=== PATIENT | male | born 1945 | race Caucasian/White ===

== ENCOUNTER 2016-11-04 15:58 | Emergency (ER) | payer MEDICARE, MEDICAID ==
--- NOTE | 2016-11-04 17:00 | EDM.PDOC ---
[id number]: [facility] Time Seen by Provider: 11/04/16 16:30 Source of Information: Reports: Patient, EMS, Family History Limitations: Reports: No Limitations - History of Present Illness INITIAL COMMENTS - FREE TEXT/NARRATIVE: 71-year-old male who had an unresponsive episode at the custodial. He was in his wheelchair, had used the bathroom so got up from his wheelchair to go into the bathroom and started feeling very lightheaded and unsteady. He feels no chest pain or palpitations. He called the nurse to help him into the bathroom, he did urinate but became so lightheaded he had to be helped back into bed and the end of his urination became incontinent. They laid him on the bed he went unresponsive, they could not get a pulse and he turned dusky but continued to have shallow breathing. EMS was called and by the time they arrived he was conscious and talking but became very nauseous. 3 serial EKGs were done by EMS and all show what appears to be sinus rhythm. He now still feels a little lightheaded but otherwise is back to baseline. He had no significant diaphoresis. Onset: Sudden Duration: Hour(s): (Within the last 2 hours) Associated Symptoms: Reports: Nausea/Vomiting, Syncope, Weakness Chest Pain Score (Numeric/FACES): 2 - Related Data Allergies Allergy/AdvReac Type Severity Reaction Status Date / Time albuterol Allergy Cannot Verified 11/04/16 16:13 Remember digoxin AdvReac Confusion Verified 11/04/16 16:13 Home Meds: Home Meds Gabapentin [Neurontin] 400 mg PO TID 03/12/15 [History] Pantoprazole [ProTONIX] 40 mg PO BIDAC #60 tab.cr 03/15/15 [Rx] Hydrocodone/Acetaminophen [[place] 5-325] 1 tab PO Q4H PRN 05/07/15 [History] Melatonin 5 mg PO BEDTIME 05/07/15 [History] Sennosides/Docusate Sodium [Senna-Docusate Sodium] 2 tab PO BID 07/14/15 [ History] ClonazePAM [KlonoPIN] 1 mg PO BEDTIME PRN 08/10/15 [History] Levalbuterol HCl 1 ampule IH BID PRN 08/10/15 [History] Sertraline [Zoloft] 125 mg PO QAM 08/10/15 [History] Simvastatin [Zocor] 10 mg PO QPM 08/10/15 [History] Morphine Sulfate 7.5 mg PO Q6H PRN #30 tablet 08/17/15 [Rx] Lactulose [Cephulac] 30 ml PO DAILY PRN 08/31/15 [History] Metoprolol Tartrate [Lopressor] 50 mg PO BID 03/11/16 [History] Polyethylene Glycol 3350 [MiraLAX] 17 gm PO DAILY 03/11/16 [History] Torsemide 10 mg PO DAILY 03/11/16 [History] Warfarin [Coumadin] 2 mg PO DAILY 03/11/16 [History] Albuterol [Proair HFA] 2 puff INH Q4HR PRN 11/04/16 [History] Amino Ac/Protein Hydr/Whey Pro [Liquacel Liquid Protein] 1 oz PO BID 11/04/16 [ History] Flecainide Acetate [Flecainide Acetate] 150 mg PO BID 11/04/16 [History] Magnesium Oxide [Magnesium] 420 mg PO BID 11/04/16 [History] Mometasone/Formoterol [[place]era 200-5 MCG] 2 puff INH BIDRT 11/04/16 [History] Potassium Chloride 40 meq PO BIDAC 11/04/16 [History] Warfarin [Coumadin] 1.5 mg PO ASDIRECTED 11/04/16 [History] Past Medical History HEENT History: Reports: Cataract, Impaired Vision, Other (See Below) Other HEENT History: dry eye Cardiovascular History: Reports: Afib, CAD, Heart Failure, Hypertension Respiratory History: Reports: Asthma, COPD, Pneumonia, Recurrent, Other (See Below) Other Respiratory History: chronic pulmonary edema Gastrointestinal History: Reports: Chronic Constipation, Diverticulosis, GERD, Other (See Below) Other Gastrointestinal History: Intestinal rupture. warren's esophagus Genitourinary History: Reports: Renal Disease, Other (See Below) Other Genitourinary History: malignant neoplasm of of the kidney Musculoskeletal History: Reports: Fracture Other Musculoskeletal History: right rib fractures Neurological History: Reports: Concussion, Head Trauma Psychiatric History: Reports: Anxiety, Depression, Psych Hospitalization(s), PTSD, Other (See Below) Other Psychiatric History: sleep disorder Endocrine/Metabolic History: Reports: Obesity/BMI 30+ Oncologic (Cancer) History: Reports: Renal Dermatologic History: Reports: Other (See Below) Other Dermatologic History: dermatitis - Infectious Disease History Infectious Disease History: Reports: C-Difficile, Diphtheria, Mumps, Rheumatic Fever - Past Surgical History HEENT Surgical History: Reports: Cataract Surgery Other Cardiovascular Surgeries/Procedures: angiogram. ablasion GI Surgical History: Reports: Colon, Colostomy, EGD, Hernia Repair/Other, Other (See Below) Male Surgical History: Reports: Other (See Below) Other Male Surgeries/Procedures: "frozen" a spot on his kidney Social & Family History - Family History Family Medical History: Unobtainable HEENT: Reports: None Cardiac: Reports: Heart Failure, [place] Respiratory: Reports: COPD Psychiatric: Reports: Anxiety, Psych Hospitalization(s) Endocrine/Metabolic: Reports: Diabetes, type II - Tobacco Use Smoking Status *Q: Former Smoker Years of Tobacco use: 42 Used Tobacco, but Quit: Yes Month Tobacco Last Used: 10 years ago Second Hand Smoke Exposure: No - Caffeine Use Caffeine Use: Reports: Coffee, Soda - Alcohol Use Days Per Week of Alcohol Use: 1 Number of Drinks Per Day: 3 Total Drinks Per Week: 3 - Recreational Drug Use Recreational Drug Use: No - Living Situation & Occupation Living situation: Reports: Single Occupation: Disabled ED ROS GENERAL - Review of Systems Review Of Systems: See Below Constitutional: Denies: Fever, Chills, Malaise HEENT: Reports: No Symptoms Respiratory: Reports: Shortness of Breath (Chronic and stable, patient is O2 dependent) Cardiovascular: Denies: Chest Pain GI/Abdominal: Reports: Nausea, Other (Patient has a colostomy from surgery after diverticulitis with rupture). Denies: Abdominal Pain Musculoskeletal: Reports: Other (Chronic back pain) Skin: Reports: Bruising, Other (Was protective sleeves on his arms because of frequent skin tears) Neurological: Reports: Difficulty Walking Psychiatric: Reports: No Symptoms ED EXAM, GENERAL - Physical Exam Exam: See Below Exam Limited By: No Limitations General Appearance: Alert, No Apparent Distress Eye Exam: Bilateral Eye: Normal Inspection Respiratory/Chest: No Respiratory Distress, Decreased Breath Sounds (Diffuse decreased breath sounds bilaterally) Cardiovascular: Regular Rate, Rhythm. No: Extra Beats GI/Abdominal: Non-Tender, Other (Colostomy is in place, appears to be functioning) Extremities: No: Pedal Edema Neurological: Alert, Oriented Psychiatric: Normal Affect, Normal Mood Skin Exam: Warm, Dry Course - Vital Signs Last Recorded V/S: Last Vital Signs Temp 98.4 F 11/04/16 17:32 Pulse 101 H 11/04/16 17:32 Resp 12 11/04/16 17:32 BP 123/86 11/04/16 17:32 Pulse Ox 96 11/04/16 17:32 - Orders/Labs/Meds Labs: Laboratory Tests 11/04/16 11/04/16 Range/Units 16:58 16:58 WBC 11.1 H (4.5-11.0) K/uL RBC 4.37 (4.30-5.90) M/uL Hgb 13.0 (12.0-15.0) g/dL Hct 40.5 (40.0-54.0) % MCV 93 (80-98) fL MCH 30 (27-31) pg MCHC 32 (32-36) % Plt Count 291 (150-400) K/uL Neut % (Auto) 80 H (36-66) % Lymph % (Auto) 10 L (24-44) % [place] % (Auto) 8 H (2-6) % Eos % (Auto) 2 (2-4) % Baso % (Auto) 1 (0-1) % Sodium 137 L (140-148) mmol/L Potassium 4.6 (3.6-5.2) mmol/L Chloride 102 (100-108) mmol/L Carbon Dioxide 29 (21-32) mmol/L Anion Gap 10.6 (5.0-14.0) mmol/L BUN 33 H (7-18) mg/dL Creatinine 1.7 H (0.8-1.3) mg/dL Est Cr Clr Drug Dosing 39.12 mL/min Estimated GFR (MDRD) 40 L (>60) Glucose 103 (74-106) mg/dL Calcium 8.1 L (8.5-10.1) mg/dL Total Bilirubin 0.2 (0.2-1.0) mg/dL AST 49 H D (15-37) U/L ALT 53 D (12-78) U/L Alkaline Phosphatase 121 H (46-116) U/L Troponin I < 0.017 (0.000-0.056) ng/mL Total Protein 7.5 (6.4-8.2) g/dL Albumin 3.1 L (3.4-5.0) g/dL Globulin 4.4 H (2.3-3.5) g/dL Albumin/Globulin Ratio 0.7 L (1.2-2.2) - Re-Assessments/Exams Free Text/Narrative Re-Assessment/Exam: 11/04/16 17:00 Patient was monitored for an additional 45 minutes and maintained a sinus rhythm. CBC, CMP and troponin were obtained. 11/04/16 17:38 Patient remained asymptomatic over a course of an hour, labs were reassuring. His renal insufficiency is stable. He is not anemic. Departure - Departure Time of Disposition: 18:43 Disposition: DC/Tfer to [facility] Condition: good Clinical Impression: Vasovagal syncope - Discharge Information Instructions: Syncope, [id number] Referrals: Yg Walker MD [Primary Care Provider] - Forms: ED Department Discharge Care Plan Goals: Increase activity as tolerated, and diet as usual and no medication changes at this time. Return or call any time if you feel you are worsening or have other concerns.
[2016-11-04 17:34] VITALS: BP 123/86
== END 2016-11-04 18:20 ==
LOC: JP.ED 15:58
DX: R55 Syncope and collapse (principal); I25.10 Atherosclerotic heart disease of native coronary artery without angina pectoris; I11.0 Hypertensive heart disease with heart failure; I50.9 Heart failure, unspecified; J44.9 Chronic obstructive pulmonary disease, unspecified; K21.9 Gastro-esophageal reflux disease without esophagitis; F41.9 Anxiety disorder, unspecified; E66.9 Obesity, unspecified; Z98.49 Cataract extraction status, unspecified eye; Z87.891 Personal history of nicotine dependence; Z88.8 Allergy status to other drugs, medicaments and biological substances; Z88.1 Allergy status to other antibiotic agents; Z79.899 Other long term (current) drug therapy; Z79.01 Long term (current) use of anticoagulants
CPT/HCPCS: 36415; 80053; 84484; 85025; 99284; 99285

== ENCOUNTER 2016-12-07 04:16 | Emergency (ER) | payer MEDICARE, MEDICAID ==
--- NOTE | 2016-12-07 04:55 | EDM.PDOC ---
[id number]: [facility] [place] Time Seen by Provider: 12/07/16 04:35 Source of Information: Reports: Patient, EMS, [facility] Records History Limitations: Reports: No Limitations - History of Present Illness INITIAL COMMENTS - FREE TEXT/NARRATIVE: 71-year-old male was felt to be unresponsive and not breathing at the longterm this evening so the staff started doing chest compressions. Apparently he received about 6 compressions and he woke up, EMS was called. When EMS arrived he was up and talking and visiting and complaining of some chest discomfort from the compressions. I saw him one month ago with a vasovagal unresponsive episode but apparently he's done well since then. He is on chronic O2. No fevers or chills. No nausea or vomiting. His vitals are stable at this time. He is in a normal sinus rhythm. Onset: Unknown/Unsure Severity: Moderate Associated Symptoms: Reports: Other (Currently being treated for "pneumonia"). Denies: Fever/Chills Anterior Chest Pain Score (Numeric/FACES): 6 - Related Data Allergies Allergy/AdvReac Type Severity Reaction Status Date / Time albuterol Allergy Cannot Verified 11/04/16 16:13 Remember digoxin AdvReac Confusion Verified 11/04/16 16:13 Home Meds: Home Meds Gabapentin [Neurontin] 400 mg PO TID 03/12/15 [History] Pantoprazole [ProTONIX] 40 mg PO BIDAC #60 tab.cr 03/15/15 [Rx] Hydrocodone/Acetaminophen [[place] 5-325] 1 tab PO Q4H PRN 05/07/15 [History] Melatonin 3 mg PO BEDTIME 05/07/15 [History] Sennosides/Docusate Sodium [Senna-Docusate Sodium] 2 tab PO BID 07/14/15 [ History] ClonazePAM [KlonoPIN] 1 mg PO BEDTIME PRN 08/10/15 [History] Levalbuterol HCl 1 ampule IH BID 08/10/15 [History] Sertraline [Zoloft] 125 mg PO QAM 08/10/15 [History] Simvastatin [Zocor] 10 mg PO QPM 08/10/15 [History] Lactulose [Cephulac] 30 ml PO DAILY PRN 08/31/15 [History] Metoprolol Tartrate [Lopressor] 50 mg PO BID 03/11/16 [History] Polyethylene Glycol 3350 [MiraLAX] 17 gm PO DAILY 03/11/16 [History] Torsemide 10 mg PO DAILY 03/11/16 [History] Warfarin [Coumadin] 2 mg PO ASDIRECTED 03/11/16 [History] Albuterol [Proair HFA] 2 puff INH Q4HR PRN 11/04/16 [History] Flecainide Acetate [Flecainide Acetate] 150 mg PO BID 11/04/16 [History] Magnesium Oxide [Magnesium] 420 mg PO BID 11/04/16 [History] Mometasone/Formoterol [[place]era 200-5 MCG] 2 puff INH BIDRT 11/04/16 [History] Potassium Chloride 40 meq PO BIDAC 11/04/16 [History] Warfarin [Coumadin] 1 mg PO ASDIRECTED 11/04/16 [History] Acetaminophen [Tylenol] 650 mg PO TID 12/07/16 [History] Qnusf-[id number]-Aqvqearcwaxbs [Beano] 1 each PO TIDAC 12/07/16 [History] Dextran 70/Hypromellose [Artificial Tears Eye Drops] 2 drop OP BID 12/07/16 [ History] Levofloxacin [Levaquin] 250 mg PO DAILY 12/07/16 [History] Morphine Sulfate 7.5 mg PO Q3H PRN 12/07/16 [History] Vit E Acetate/Gly/Dimeth/Water [Cetaphil Moisturizing Lotion] 1 applic TOP DAILY 12/07/16 [History] Past Medical History HEENT History: Reports: Cataract, Impaired Vision, Other (See Below) Other HEENT History: dry eye Cardiovascular History: Reports: Afib, CAD, Heart Failure, Hypertension Respiratory History: Reports: Asthma, COPD, Pneumonia, Recurrent, Other (See Below) Other Respiratory History: chronic pulmonary edema Gastrointestinal History: Reports: Chronic Constipation, Diverticulosis, GERD, Other (See Below) Other Gastrointestinal History: Intestinal rupture. warren's esophagus Genitourinary History: Reports: Renal Disease, Other (See Below) Other Genitourinary History: malignant neoplasm of of the kidney Musculoskeletal History: Reports: Fracture Other Musculoskeletal History: right rib fractures Neurological History: Reports: Concussion, Head Trauma Psychiatric History: Reports: Anxiety, Depression, Psych Hospitalization(s), PTSD, Other (See Below) Other Psychiatric History: sleep disorder Endocrine/Metabolic History: Reports: Obesity/BMI 30+ Oncologic (Cancer) History: Reports: Renal Dermatologic History: Reports: Other (See Below) Other Dermatologic History: dermatitis - Infectious Disease History Infectious Disease History: Reports: C-Difficile, Diphtheria, Mumps, Rheumatic Fever - Past Surgical History HEENT Surgical History: Reports: Cataract Surgery Other Cardiovascular Surgeries/Procedures: angiogram. ablasion GI Surgical History: Reports: Colon, Colostomy, EGD, Hernia Repair/Other, Other (See Below) Male Surgical History: Reports: Other (See Below) Other Male Surgeries/Procedures: "frozen" a spot on his kidney Social & Family History - Family History Family Medical History: Unobtainable HEENT: Reports: None Cardiac: Reports: Heart Failure, [place] Respiratory: Reports: COPD Psychiatric: Reports: Anxiety, Psych Hospitalization(s) Endocrine/Metabolic: Reports: Diabetes, type II - Tobacco Use Smoking Status *Q: Never Smoker Years of Tobacco use: 42 Used Tobacco, but Quit: Yes Month Tobacco Last Used: 10 years ago Second Hand Smoke Exposure: No - Caffeine Use Caffeine Use: Reports: Coffee - Alcohol Use Days Per Week of Alcohol Use: 0 Number of Drinks Per Day: 3 Total Drinks Per Week: 0 - Recreational Drug Use Recreational Drug Use: No - Living Situation & Occupation Living situation: Reports: Single Occupation: Disabled ED ROS GENERAL - Review of Systems Review Of Systems: See Below Constitutional: Denies: Fever, Chills Respiratory: Reports: Shortness of Breath (Chronic and stable), Cough ( Intermittent) Cardiovascular: Reports: Chest Pain (Hurts to breathe) GI/Abdominal: Denies: Nausea, Vomiting Skin: Reports: No Symptoms Neurological: Denies: Headache Psychiatric: Reports: No Symptoms ED EXAM, GENERAL - Physical Exam Exam: See Below Exam Limited By: No Limitations General Appearance: Alert, No Apparent Distress Eye Exam: Bilateral Eye: EOMI Respiratory/Chest: No Respiratory Distress, Decreased Breath Sounds (Diffuse decreased breath sounds but no wheezing or rales) Cardiovascular: Regular Rate, Rhythm GI/Abdominal: Non-Tender Extremities: No: Pedal Edema Neurological: Alert, Oriented Psychiatric: Normal Affect, Normal Mood Skin Exam: Warm, Dry Course - Vital Signs Last Recorded V/S: Last Vital Signs Temp 98.4 F 12/07/16 04:29 Pulse 50 L 12/07/16 07:42 Resp 16 12/07/16 07:42 BP 98/56 L 12/07/16 07:42 Pulse Ox 92 L 12/07/16 07:42 - Orders/Labs/Meds Labs: Laboratory Tests 12/07/16 12/07/16 Range/Units 04:37 04:37 WBC 9.2 (4.5-11.0) K/uL RBC 3.77 L (4.30-5.90) M/uL Hgb 11.2 L (12.0-15.0) g/dL Hct 35.4 L (40.0-54.0) % MCV 94 (80-98) fL MCH 30 (27-31) pg MCHC 32 (32-36) % Plt Count 249 (150-400) K/uL Neut % (Auto) 75 H (36-66) % Lymph % (Auto) 14 L (24-44) % [place] % (Auto) 8 H (2-6) % Eos % (Auto) 2 (2-4) % Baso % (Auto) 0 (0-1) % Sodium 141 (140-148) mmol/L Potassium 4.4 (3.6-5.2) mmol/L Chloride 106 (100-108) mmol/L Carbon Dioxide 30 (21-32) mmol/L Anion Gap 5.5 (5.0-14.0) mmol/L BUN 28 H (7-18) mg/dL Creatinine 2.3 H (0.8-1.3) mg/dL Est Cr Clr Drug Dosing 29.89 mL/min Estimated GFR (MDRD) 28 L (>60) Glucose 107 H (74-106) mg/dL Calcium 8.2 L (8.5-10.1) mg/dL Troponin I < 0.017 (0.000-0.056) ng/mL - Re-Assessments/Exams Free Text/Narrative Re-Assessment/Exam: 12/07/16 04:43 manager monitoring continued to show normal sinus rhythm. Other than the chest discomfort the patient complained of no symptoms. CBC BMP and troponin were obtained, and compared to the labs drawn 2 days ago by his primary provider and by myself one month ago. 12/07/16 07:00 Creatinine was slightly elevated compared to baseline but GFR was stable. Troponin was 0 and CBC was stable. Patient rested quietly for 3 hours while in the emergency room, no additional symptoms. He was discharged back to the longterm. Departure - Departure Time of Disposition: 08:00 Disposition: DC/Tfer to [facility] 63 Condition: Fair Clinical Impression: Episode of unresponsiveness COPD (chronic obstructive pulmonary disease) Qualifiers: COPD type: unspecified COPD Qualified Code(s): J44.9 - Chronic obstructive pulmonary disease, unspecified - Discharge Information Instructions: Chronic Obstructive Pulmonary Disease, [id number] Referrals: PCP,None [Primary Care Provider] - Forms: ED Department Discharge Care Plan Goals: Continue current medications without changes. Call primary provider for any changes or concerns, or return to ER if worsening.
[2016-12-07 07:43] VITALS: BP 98/56
== END 2016-12-07 08:02 ==
LOC: JP.ED 04:16
DX: J44.9 Chronic obstructive pulmonary disease, unspecified (principal); R41.82 Altered mental status, unspecified; I11.0 Hypertensive heart disease with heart failure; I50.9 Heart failure, unspecified; J45.909 Unspecified asthma, uncomplicated; K21.9 Gastro-esophageal reflux disease without esophagitis; F41.9 Anxiety disorder, unspecified; F32.9 Major depressive disorder, single episode, unspecified; E66.9 Obesity, unspecified; Z85.528 Personal history of other malignant neoplasm of kidney; Z98.49 Cataract extraction status, unspecified eye; Z79.899 Other long term (current) drug therapy; Z79.01 Long term (current) use of anticoagulants; Z88.8 Allergy status to other drugs, medicaments and biological substances
CPT/HCPCS: 36415; 80048; 84484; 85025; 99282; 99285

== ENCOUNTER 2016-12-12 11:40 | Inpatient (IN) | payer MEDICARE, MEDICAID ==
[2016-12-12] MEDS ORDERED: Sodium Chloride 0.9% 10 ML Syringe FLUSH PRN ×2 (11:54→14:39)
[2016-12-12] MEDS ORDERED: Albuterol/Ipratropium 3.0-0.5 MG/3 ML Neb Soln NEB ONE (11:56)
--- NOTE | 2016-12-12 12:08 | EDM.PDOC ---
ED HPI GENERAL MEDICAL PROBLEM - General Chief Complaint: Respiratory Problem Stated Complaint: [facility] Time Seen by Provider: 12/12/16 11:50 Source of Information: Reports: EMS History Limitations: Reports: Respiratory Distress - History of Present Illness INITIAL COMMENTS - FREE TEXT/NARRATIVE: Neo is a 71 year old male who presents to the ED today from [facility] with increasing sob over the last 2 days. Patient has extensive medial hx. Daughter reports that she tried to bring patient here herself and became "unresponsive" in the car so she called 911. EMS arrived, patient was awake but found to be significantly hypoxic at 76% on 2 liters. Patient did have an episode of unresponsiveness on 12/07 at the [facility], there was reported 6 chest compressions done at that time after which patient woke up. Patient denies any chest pain other than soreness related to the chest compressions. He denies any fever, nausea, vomiting, abdominal pain. Patient reports he has been eating and drinking "okay". Patient has had increasing productive cough for the last 3 days as well. Onset: Gradual Duration: Day(s): (3) Severity: Severe - Related Data Allergies Allergy/AdvReac Type Severity Reaction Status Date / Time albuterol Allergy Cannot Verified 11/04/16 16:13 Remember digoxin AdvReac Confusion Verified 11/04/16 16:13 Home Meds: Home Meds Gabapentin [Neurontin] 400 mg PO TID 03/12/15 [History] Pantoprazole [ProTONIX] 40 mg PO BIDAC #60 tab.cr 03/15/15 [Rx] Hydrocodone/Acetaminophen [Butler 5-325] 1 tab PO Q4H PRN 05/07/15 [History] Melatonin 3 mg PO BEDTIME 05/07/15 [History] Sennosides/Docusate Sodium [Senna-Docusate Sodium] 2 tab PO BID 07/14/15 [ History] ClonazePAM [KlonoPIN] 1 mg PO BEDTIME PRN 08/10/15 [History] Levalbuterol HCl 1 ampule IH BID 08/10/15 [History] Sertraline [Zoloft] 125 mg PO QAM 08/10/15 [History] Simvastatin [Zocor] 10 mg PO QPM 08/10/15 [History] Lactulose [Cephulac] 30 ml PO DAILY PRN 08/31/15 [History] Metoprolol Tartrate [Lopressor] 50 mg PO BID 03/11/16 [History] Polyethylene Glycol 3350 [MiraLAX] 17 gm PO DAILY 03/11/16 [History] Torsemide 10 mg PO DAILY 03/11/16 [History] Warfarin [Coumadin] 2 mg PO ASDIRECTED 03/11/16 [History] Albuterol [Proair HFA] 2 puff INH Q4HR PRN 11/04/16 [History] Flecainide Acetate [Flecainide Acetate] 150 mg PO BID 11/04/16 [History] Magnesium Oxide [Magnesium] 420 mg PO BID 11/04/16 [History] Mometasone/Formoterol [Dulera 200-5 MCG] 2 puff INH BIDRT 11/04/16 [History] Potassium Chloride 40 meq PO BIDAC 11/04/16 [History] Warfarin [Coumadin] 1 mg PO ASDIRECTED 11/04/16 [History] Acetaminophen [Tylenol] 650 mg PO TID 12/07/16 [History] Kwzny-W-Vhxioorxjlxzm [Beano] 1 each PO TIDAC 12/07/16 [History] Dextran 70/Hypromellose [Artificial Tears Eye Drops] 2 drop OP BID 12/07/16 [ History] Levofloxacin [Levaquin] 250 mg PO DAILY 12/07/16 [History] Morphine Sulfate 7.5 mg PO Q3H PRN 12/07/16 [History] Vit E Acetate/Gly/Dimeth/Water [Cetaphil Moisturizing Lotion] 1 applic TOP DAILY 12/07/16 [History] Past Medical History HEENT History: Reports: Cataract, Impaired Vision, Other (See Below) Other HEENT History: dry eye Cardiovascular History: Reports: Afib, CAD, Heart Failure, Hypertension Respiratory History: Reports: Asthma, COPD, Pneumonia, Recurrent, Other (See Below) Other Respiratory History: chronic pulmonary edema Gastrointestinal History: Reports: Chronic Constipation, Diverticulosis, GERD, Other (See Below) Other Gastrointestinal History: Intestinal rupture. warren's esophagus Genitourinary History: Reports: Renal Disease, Other (See Below) Other Genitourinary History: malignant neoplasm of of the kidney Musculoskeletal History: Reports: Fracture Other Musculoskeletal History: right rib fractures Neurological History: Reports: Concussion, Head Trauma Psychiatric History: Reports: Anxiety, Depression, Psych Hospitalization(s), PTSD, Other (See Below) Other Psychiatric History: sleep disorder Endocrine/Metabolic History: Reports: Obesity/BMI 30+ Hematologic History: Reports: Anemia, Anticoagulation Therapy Immunologic History: Reports: None Oncologic (Cancer) History: Reports: Renal Dermatologic History: Reports: Other (See Below) Other Dermatologic History: dermatitis - Infectious Disease History Infectious Disease History: Reports: C-Difficile, Diphtheria, Mumps, Rheumatic Fever - Past Surgical History HEENT Surgical History: Reports: Cataract Surgery Other Cardiovascular Surgeries/Procedures: angiogram. ablasion GI Surgical History: Reports: Colon, Colostomy, EGD, Hernia Repair/Other, Other (See Below) Male Surgical History: Reports: Other (See Below) Other Male Surgeries/Procedures: "frozen" a spot on his kidney Social & Family History - Family History Family Medical History: Unobtainable HEENT: Reports: None Cardiac: Reports: Heart Failure, NE Respiratory: Reports: COPD Psychiatric: Reports: Anxiety, Psych Hospitalization(s) Endocrine/Metabolic: Reports: Diabetes, type II - Tobacco Use Smoking Status *Q: Never Smoker Years of Tobacco use: 42 Used Tobacco, but Quit: Yes Month Tobacco Last Used: 10 years ago Second Hand Smoke Exposure: No - Caffeine Use Caffeine Use: Reports: Coffee - Alcohol Use Days Per Week of Alcohol Use: 0 Number of Drinks Per Day: 3 Total Drinks Per Week: 0 - Recreational Drug Use Recreational Drug Use: No - Living Situation & Occupation Living situation: Reports: Single Occupation: Disabled ED ROS GENERAL - Review of Systems Review Of Systems: See Below Constitutional: Reports: Fatigue Respiratory: Reports: Shortness of Breath, Wheezing, Cough, Sputum Cardiovascular: Reports: Chest Pain, Dyspnea on Exertion, Edema Endocrine: Reports: Fatigue GI/Abdominal: Reports: No Symptoms : Reports: No Symptoms Musculoskeletal: Reports: No Symptoms Skin: Reports: Bruising Neurological: Reports: Syncope Psychiatric: Reports: No Symptoms Immunologic: Reports: No Symptoms ED EXAM, GENERAL - Physical Exam Exam: See Below Exam Limited By: Respiratory Distress General Appearance: Alert, Moderate Distress Neck: Normal Inspection Respiratory/Chest: Crackles, Wheezing, Other (mid sternal chest tenderness, no crepitus) Cardiovascular: No JVD, Bradycardia, Other (regular rhythm) GI/Abdominal: Non-Tender, Distended, Other (colostomy present) (Male) Exam: Deferred Rectal (Males) Exam: Deferred Extremities: Slow Capillary Refill, Pallor, Other Neurological: Alert, Oriented, Normal Cognition Psychiatric: Normal Affect Skin Exam: Warm, Dry EKG INTERPRETATION EKG Date: 12/12/16 Rhythm: NSR [place]: Normal P-Wave: Present QRS: Normal ST-T: Normal QT: Normal Course - Vital Signs Last Recorded V/S: Last Vital Signs Temp 37.1 C 12/12/16 12:08 Pulse 57 L 12/12/16 12:08 Resp 19 12/12/16 12:08 BP 136/67 12/12/16 12:08 Pulse Ox 92 L 12/12/16 12:08 Neo is a 71 year old male with multiple medical problems including CHF, COPD , CKD, atrial fibrillation, anti-coagulated currently being treated for pneumonia, on Levaquin who presents to the ED today via EMS with worsening increasing SOB for the last 2-3 days. Please refer to HPI and focused exam. On arrival, patient is in acute respiratory distress, patient is quite tachypneic, he is hypoxic at 74% on 2 liters per cannula. Patient has tenderness to medial chest from compressions last week. Patient exhibits crackles and wheezing on lung exam, likely combination of CHF and COPD exacerbation, possible worsening pneumonia and concerns for sepsis as well given recent hx. Patient is actually bradycardic and normotensive, he is not febrile. PIV established, RT called, patient placed on bipap with immediate improvement in respiratory distress and hypoxia. EKG obtained, reads junctional rhythm, however, P waves noted, patient in kartik sinus with no ectopy or ischemic findings. Blood work obtained, Troponin is undetectable, BNP elevated at 3588, no recent comparison, CBC returns with normal WBC, HGB stable at 11. ABG returns with normal PH. Mildly elevated PCO2 and Bicarb. Lactic Acid normal at 1.6. CMP returns with elevated creatinine of 2.0 consistent with patient's CKD, BUN elevated at 36. Potassium is elevated at 5.3. Sodium returns at 138. Alkaline phos is elevated as well at 132. Milldly low albumin of 2.8. Remaining CMP within normal limits. CXR obtained and has hazy borders and congestion consistent with CHF, worse than prior film. 1315-Patient feeling much better on Bipap. I did give him 40 mg lasix for diuresis and 125 mg of Solumedrol for COPD exacerbation. Patient is not currently on steroids that I can find. I discussed patient with hospitalist, Dr. Staples who has accepted patient for admission. Family and patient updated on plan of care and are agreeable. - Orders/Labs/Meds Orders: Active Orders 24 hr Category Date Time Status BIPAP Adult [RT BiPAP/CPAP] [RC] ASDIRECTED Care 12/12/16 11:54 Active Cardiac Monitoring [RC] .As Directed Care 12/12/16 11:54 Active EKG Documentation Completion [RC] ASDIRECTED Care 12/12/16 11:53 Active Peripheral IV Care [RC] . DIRECTED Care 12/12/16 11:54 Active RT Aerosol Therapy [RC] ASDIRECTED Care 12/12/16 11:58 Active Chest 1V Frontal [CR] Stat Exams 12/12/16 11:56 Taken URINALYSIS W/MICROSCOPIC [UA W/MICROSCOPIC] [URIN] Stat Lab 12/12/16 13:05 Ordered Sodium Chloride 0.9% [Saline Flush] Med 12/12/16 11:54 Active 10 ml FLUSH ASDIRECTED PRN Peripheral IV Insertion Adult [OM.PC] Routine Oth 12/12/16 11:54 Ordered EKG 12 Lead [EK] Stat Ther 12/12/16 11:53 Ordered Medication Orders Sodium Chloride (Saline Flush) 10 ml FLUSH ASDIRECTED PRN PRN Reason: Keep Vein Open Labs: Laboratory Tests 12/12/16 12/12/16 12/12/16 Range/Units 12:15 12:15 12:15 WBC 9.0 (4.5-11.0) K/uL RBC 3.70 L (4.30-5.90) M/uL Hgb 11.0 L (12.0-15.0) g/dL Hct 34.7 L (40.0-54.0) % MCV 94 (80-98) fL MCH 30 (27-31) pg MCHC 32 (32-36) % Plt Count 267 (150-400) K/uL Neut % (Auto) 76 H (36-66) % Lymph % (Auto) 11 L (24-44) % Dawson % (Auto) 11 H (2-6) % Eos % (Auto) 3 (2-4) % Baso % (Auto) 1 (0-1) % Puncture Site ABG pH (7.350-7.450) ABG pCO2 (35.0-42.0) mmHg ABG pO2 (75.0-100.0) mmHg ABG HCO3 (22.0-26.0) mmol/L ABG Total CO2 (23.0-27.0) mmol/L ABG O2 Saturation (95.0-98.0) % ABG O2 Content (15.0-23.0) %vol ABG Base Excess mm/L ABG Hemoglobin (13.5-18.0) g/dL ABG Oxyhemoglobin % ABG Carboxyhemoglobin (0.0-1.6) % ABG Methemoglobin % Abdulaziz Test O2 Delivery Device Oxygen Flow Rate L Sodium 138 L (140-148) mmol/L Potassium 5.3 H (3.6-5.2) mmol/L Chloride 102 (100-108) mmol/L Carbon Dioxide 28 (21-32) mmol/L Anion Gap 13.3 (5.0-14.0) mmol/L BUN 36 H (7-18) mg/dL Creatinine 2.0 H (0.8-1.3) mg/dL Est Cr Clr Drug Dosing 34.37 mL/min Estimated GFR (MDRD) 33 L (>60) Glucose 125 H (74-106) mg/dL Lactic Acid 1.6 (0.4-2.0) mmol/L Calcium 8.6 (8.5-10.1) mg/dL Total Bilirubin 0.5 D (0.2-1.0) mg/dL AST 19 (15-37) U/L ALT 29 (12-78) U/L Alkaline Phosphatase 132 H (46-116) U/L Troponin I (0.000-0.056) ng/mL Xxy-V-Vrcwvjzzxlr Pept (5-125) pg/mL Total Protein 7.5 (6.4-8.2) g/dL Albumin 2.8 L (3.4-5.0) g/dL Globulin 4.7 H (2.3-3.5) g/dL Albumin/Globulin Ratio 0.6 L (1.2-2.2) 12/12/16 12/12/16 Range/Units 12:15 12:28 WBC (4.5-11.0) K/uL RBC (4.30-5.90) M/uL Hgb (12.0-15.0) g/dL Hct (40.0-54.0) % MCV (80-98) fL MCH (27-31) pg MCHC (32-36) % Plt Count (150-400) K/uL Neut % (Auto) (36-66) % Lymph % (Auto) (24-44) % Dawson % (Auto) (2-6) % Eos % (Auto) (2-4) % Baso % (Auto) (0-1) % Puncture Site Lt radial ABG pH 7.380 (7.350-7.450) ABG pCO2 46.0 H (35.0-42.0) mmHg ABG pO2 79.4 (75.0-100.0) mmHg ABG HCO3 26.6 H (22.0-26.0) mmol/L ABG Total CO2 24.6 (23.0-27.0) mmol/L ABG O2 Saturation 95.1 (95.0-98.0) % ABG O2 Content 14.1 L (15.0-23.0) %vol ABG Base Excess 1.7 mm/L ABG Hemoglobin 10.7 L (13.5-18.0) g/dL ABG Oxyhemoglobin 93.1 % ABG Carboxyhemoglobin 1.3 (0.0-1.6) % ABG Methemoglobin 0.8 % Abdulaziz Test Pass O2 Delivery Device Bipap Oxygen Flow Rate L Sodium (140-148) mmol/L Potassium (3.6-5.2) mmol/L Chloride (100-108) mmol/L Carbon Dioxide (21-32) mmol/L Anion Gap (5.0-14.0) mmol/L BUN (7-18) mg/dL Creatinine (0.8-1.3) mg/dL Est Cr Clr Drug Dosing mL/min Estimated GFR (MDRD) (>60) Glucose (74-106) mg/dL Lactic Acid (0.4-2.0) mmol/L Calcium (8.5-10.1) mg/dL Total Bilirubin (0.2-1.0) mg/dL AST (15-37) U/L ALT (12-78) U/L Alkaline Phosphatase (46-116) U/L Troponin I < 0.017 (0.000-0.056) ng/mL [id number]-Pczkhrghdsb Pept 3588 H (5-125) pg/mL Total Protein (6.4-8.2) g/dL Albumin (3.4-5.0) g/dL Globulin (2.3-3.5) g/dL Albumin/Globulin Ratio (1.2-2.2) Meds: Medications Generic Name Dose Route Start Last Admin Trade Name Freq PRN Reason Stop Dose Admin Sodium Chloride 10 ml 12/12/16 11:54 Saline Flush FLUSH ASDIRECTED PRN Keep Vein Open Discontinued Medications Generic Name Dose Route Start Last Admin Trade Name Freq PRN Reason Stop Dose Admin Albuterol/Ipratropium 3 ml 12/12/16 11:56 12/12/16 12:18 Duoneb 3.0-0.5 Mg/3 Ml NEB 12/12/16 11:57 3 ml ONETIME ONE Administration Furosemide 40 mg 12/12/16 12:59 Lasix IVPUSH 12/12/16 13:00 ONETIME ONE Methylprednisolone Sodium Succinate 125 mg 12/12/16 12:59 Solu-Medrol IVPUSH 12/12/16 13:00 ONETIME ONE Morphine Sulfate 4 mg 12/12/16 13:05 Morphine IVPUSH 12/12/16 13:06 ONETIME ONE Departure - Departure Time of Disposition: 14:00 Disposition: Admitted As Inpatient 67 Condition: Fair Clinical Impression: COPD exacerbation CHF exacerbation Qualifiers: Congestive heart failure type: unspecified congestive heart failure type Qualified Code(s): I50.9 - Heart failure, unspecified - Discharge Information Forms: ED Department Discharge - My Orders Last 24 Hours: My Active Orders 12/12/16 11:53 EKG Documentation Completion [RC] ASDIRECTED EKG 12 Lead [EK] Stat 12/12/16 11:54 BIPAP Adult [RT BiPAP/CPAP] [RC] ASDIRECTED Cardiac Monitoring [RC] .As Directed Peripheral IV Care [RC] . DIRECTED Sodium Chloride 0.9% [Saline Flush] 10 ml FLUSH ASDIRECTED PRN Peripheral IV Insertion Adult [OM.PC] Routine 12/12/16 11:56 Chest 1V Frontal [CR] Stat 12/12/16 11:58 RT Aerosol Therapy [RC] ASDIRECTED 12/12/16 13:05 URINALYSIS W/MICROSCOPIC [UA W/MICROSCOPIC] [URIN] Stat - Assessment/Plan Last 24 Hours: My Active Orders 12/12/16 11:53 EKG Documentation Completion [RC] ASDIRECTED EKG 12 Lead [EK] Stat 12/12/16 11:54 BIPAP Adult [RT BiPAP/CPAP] [RC] ASDIRECTED Cardiac Monitoring [RC] .As Directed Peripheral IV Care [RC] . DIRECTED Sodium Chloride 0.9% [Saline Flush] 10 ml FLUSH ASDIRECTED PRN Peripheral IV Insertion Adult [OM.PC] Routine 12/12/16 11:56 Chest 1V Frontal [CR] Stat 12/12/16 11:58 RT Aerosol Therapy [RC] ASDIRECTED 12/12/16 13:05 URINALYSIS W/MICROSCOPIC [UA W/MICROSCOPIC] [URIN] Stat
[2016-12-12] MEDS ORDERED: methylPREDNISolone Sodium Succinate 125 MG/2 ML SDV IVPUSH ONE (12:59)
[2016-12-12] MEDS ORDERED: Furosemide 40 MG/4 ML VIAL IVPUSH ONE (12:59)
[2016-12-12] MEDS ORDERED: Morphine 4 MG/ML Syringe IVPUSH ONE (13:05)
[2016-12-12] MEDS ORDERED: Levalbuterol HCl 1.25 MG/3 ML Neb NEB PRN (14:39)
[2016-12-12] MEDS ORDERED: Ondansetron 4 MG/2 ML SDV IV PRN (14:39)
[2016-12-12] MEDS ORDERED: Acetaminophen 325 MG Tab PO PRN (14:39)
[2016-12-12] MEDS ORDERED: Polyethylene Glycol 3350 Powder 17 GM Packet PO PRN (14:39)
[2016-12-12] MEDS ORDERED: ClonazePAM 1 MG Tab PO PRN (14:39)
[2016-12-12] MEDS ORDERED: Docusate Sodium 100 MG Cap PO PRN (14:39)
[2016-12-12] MEDS ORDERED: Magnesium Hydroxide 400 MG/5 ML Susp 30 ML Cup PO PRN (14:39)
--- NOTE | 2016-12-12 14:41 | PCM.HP ---
H&P History of Present Illness - General Date of Service: 12/12/16 Admit Problem/Dx: Admission Diagnosis/Problem Admission Diagnosis/Problem CHF, Congestive heart failure Source of Information: Patient, Assisted Records, Old Records, Provider, RN Notes Reviewed History Limitations: Reports: No Limitations - History of Present Illness Initial Comments - Free Text/Narative: Mr. Urbina is a 71-year-old gentleman who is admitted through the emergency department for management of hypoxia secondary to CHF exacerbation and underlying COPD. He is been stable and living at the detention, few days ago was found to be unresponsive and received very brief chest compressions. He became more alert and interactive and was brought into the emergency department for further evaluation. He was evaluated and monitored in the emergency department with no specific etiology noted for his symptoms. Since then he's had significant chest wall pain which is thought to be secondary to the CPR. During the period of time since his last evaluation he's had progressive increase in shortness of breath as well as a 5 pound weight gain. Chest x-ray shows evidence of pulmonary edema as well as cardiac enlargement. Oxygen saturations when he was brought into the emergency room were very low in the mid 70s. He has received IV Lasix and then given a dose of Solu-Medrol. He has had no evidence of significant pulmonary infection, there are no infiltrates on chest x-ray, white blood cell count is normal, and he's not had a significant increase in sputum production or fever. - Related Data Allergies/Adverse Reactions: Allergies Allergy/AdvReac Type Severity Reaction Status Date / Time albuterol Allergy Cannot Verified 12/12/16 14:26 Remember digoxin AdvReac Confusion Verified 12/12/16 14:26 Home Medications: Home Meds Gabapentin [Neurontin] 400 mg PO TID 03/12/15 [History] Pantoprazole [ProTONIX] 40 mg PO BIDAC #60 tab.cr 03/15/15 [Rx] Hydrocodone/Acetaminophen [Protem 5-325] 1 tab PO Q4H PRN 05/07/15 [History] Melatonin 3 mg PO BEDTIME 05/07/15 [History] Sennosides/Docusate Sodium [Senna-Docusate Sodium] 2 tab PO BID 07/14/15 [ History] ClonazePAM [KlonoPIN] 1 mg PO BEDTIME PRN 08/10/15 [History] Levalbuterol HCl 1 ampule IH BID 08/10/15 [History] Sertraline [Zoloft] 125 mg PO QAM 08/10/15 [History] Simvastatin [Zocor] 10 mg PO QPM 08/10/15 [History] Lactulose [Cephulac] 30 ml PO DAILY PRN 08/31/15 [History] Metoprolol Tartrate [Lopressor] 50 mg PO BID 03/11/16 [History] Polyethylene Glycol 3350 [MiraLAX] 17 gm PO DAILY 03/11/16 [History] Torsemide 10 mg PO DAILY 03/11/16 [History] Warfarin [Coumadin] 2 mg PO ASDIRECTED 03/11/16 [History] Albuterol [Proair HFA] 2 puff INH Q4HR PRN 11/04/16 [History] Flecainide Acetate [Flecainide Acetate] 150 mg PO BID 11/04/16 [History] Magnesium Oxide [Magnesium] 420 mg PO BID 11/04/16 [History] Mometasone/Formoterol [Dulera 200-5 MCG] 2 puff INH BIDRT 11/04/16 [History] Potassium Chloride 40 meq PO BIDAC 11/04/16 [History] Warfarin [Coumadin] 1 mg PO ASDIRECTED 11/04/16 [History] Acetaminophen [Tylenol] 650 mg PO TID 12/07/16 [History] Xelfb-K-Uyhrzlitozlhp [Beano] 1 each PO TIDAC 12/07/16 [History] Dextran 70/Hypromellose [Artificial Tears Eye Drops] 2 drop OP BID 12/07/16 [ History] Levofloxacin [Levaquin] 250 mg PO DAILY 12/07/16 [History] Morphine Sulfate 7.5 mg PO Q3H PRN 12/07/16 [History] Vit E Acetate/Gly/Dimeth/Water [Cetaphil Moisturizing Lotion] 1 applic TOP DAILY 12/07/16 [History] Past Medical History HEENT History: Reports: Cataract, Impaired Vision, Other (See Below) Other HEENT History: dry eye Cardiovascular History: Reports: Afib, CAD, Heart Failure, Hypertension Respiratory History: Reports: Asthma, COPD, Pneumonia, Recurrent, Other (See Below) Other Respiratory History: chronic pulmonary edema Gastrointestinal History: Reports: Chronic Constipation, Diverticulosis, GERD, Other (See Below) Other Gastrointestinal History: Intestinal rupture. warren's esophagus Genitourinary History: Reports: Renal Disease, Other (See Below) Other Genitourinary History: malignant neoplasm of of the kidney Musculoskeletal History: Reports: Fracture Other Musculoskeletal History: right rib fractures Neurological History: Reports: Concussion, Head Trauma Psychiatric History: Reports: Anxiety, Depression, Psych Hospitalization(s), PTSD, Other (See Below) Other Psychiatric History: sleep disorder Endocrine/Metabolic History: Reports: Obesity/BMI 30+ Hematologic History: Reports: Anemia, Anticoagulation Therapy Immunologic History: Reports: None Oncologic (Cancer) History: Reports: Renal Dermatologic History: Reports: Other (See Below) Other Dermatologic History: dermatitis - Infectious Disease History Infectious Disease History: Reports: C-Difficile, Diphtheria, Mumps, Rheumatic Fever - Past Surgical History HEENT Surgical History: Reports: Cataract Surgery Other Cardiovascular Surgeries/Procedures: angiogram. ablasion GI Surgical History: Reports: Colon, Colostomy, EGD, Hernia Repair/Other, Other (See Below) Male Surgical History: Reports: Other (See Below) Other Male Surgeries/Procedures: "frozen" a spot on his kidney Social & Family History - Family History Family Medical History: Unobtainable HEENT: Reports: None Cardiac: Reports: Heart Failure, [place] Respiratory: Reports: COPD Psychiatric: Reports: Anxiety, Psych Hospitalization(s) Endocrine/Metabolic: Reports: Diabetes, type II - Tobacco Use Smoking Status *Q: Never Smoker Years of Tobacco use: 42 Used Tobacco, but Quit: Yes Month Tobacco Last Used: 10 years ago Second Hand Smoke Exposure: No - Caffeine Use Caffeine Use: Reports: Coffee - Alcohol Use Days Per Week of Alcohol Use: 0 Number of Drinks Per Day: 3 Total Drinks Per Week: 0 - Recreational Drug Use Recreational Drug Use: No - Living Situation & Occupation Living situation: Reports: Single Occupation: Disabled H&P Review of Systems - Review of Systems: Review Of Systems: See Below General: Reports: Weakness, Weight Gain. Denies: Fever, Chills, Decreased Appetite HEENT: Reports: No Symptoms Pulmonary: Reports: Shortness of Breath, Cough, Sputum. Denies: Wheezing, Pleuritic Chest Pain, Hemoptysis Cardiovascular: Reports: Dyspnea on Exertion, Syncope. Denies: Chest Pain, Palpitations, Orthopnea, PND, Edema, Lightheadedness Gastrointestinal: Reports: No Symptoms Genitourinary: Reports: No Symptoms Musculoskeletal: Reports: No Symptoms Skin: Reports: No Symptoms Psychiatric: Reports: No Symptoms Neurological: Reports: No Symptoms Hematologic/Lymphatic: Reports: No Symptoms Immunologic: Reports: No Symptoms Exam - Exam Exam: See Below - Vital Signs Vital Signs: Last Vital Signs Temp 98.7 F 12/12/16 12:08 Pulse 57 L 12/12/16 12:08 Resp 19 12/12/16 12:08 BP 104/62 12/12/16 13:27 Pulse Ox 92 L 12/12/16 12:08 Weight: 217 lb - Exam Quality Assessment: Supplemental Oxygen, DVT Prophylaxis General: Alert, Cooperative, Mild Distress HEENT: Conjunctiva Clear, Hearing Intact, Mucosa Moist & [place], Normal Nasal Septum, Posterior Pharynx Clear, Pupils Equal, Pupils Reactive Neck: Supple, Trachea Midline, +2 Carotid Pulse wo Bruit Lungs: Decreased Breath Sounds, Rales, Wheezing. No: Crackles, Rhonchi, Rub Cardiovascular: Regular Rate, Regular Rhythm, Normal S1, Normal S2, Systolic Murmur. No: Irregular Rhythm, Bradycardia, Tachycardia, Diastolic Murmur Abdomen: Normal Bowel Sounds, Soft Back Exam: Normal Inspection, Full Range of Motion, NT Extremities: 3, Normal Inspection, 10 Skin: Warm, Dry, Intact Neurological: Cranial Nerves Intact, Strength Equal Bilateral, Normal Speech, Normal Tone, Sensation Intact. No: Focal Deficit Neuro Extensive - Mental Status: Alert, Oriented x3, Normal Mood/Affect, Normal Cognition - Patient Data Lab Results Last 24 hrs: Laboratory Results - last 24 hr 12/12/16 12/12/16 12/12/16 Range/Units 12:15 12:15 12:15 WBC 9.0 (4.5-11.0) K/uL RBC 3.70 L (4.30-5.90) M/uL Hgb 11.0 L (12.0-15.0) g/dL Hct 34.7 L (40.0-54.0) % MCV 94 (80-98) fL MCH 30 (27-31) pg MCHC 32 (32-36) % Plt Count 267 (150-400) K/uL Neut % (Auto) 76 H (36-66) % Lymph % (Auto) 11 L (24-44) % [place] % (Auto) 11 H (2-6) % Eos % (Auto) 3 (2-4) % Baso % (Auto) 1 (0-1) % Puncture Site ABG pH (7.350-7.450) ABG pCO2 (35.0-42.0) mmHg ABG pO2 (75.0-100.0) mmHg ABG HCO3 (22.0-26.0) mmol/L ABG Total CO2 (23.0-27.0) mmol/L ABG O2 Saturation (95.0-98.0) % ABG O2 Content (15.0-23.0) %vol ABG Base Excess mm/L ABG Hemoglobin (13.5-18.0) g/dL ABG Oxyhemoglobin % ABG Carboxyhemoglobin (0.0-1.6) % ABG Methemoglobin % Abdulaziz Test O2 Delivery Device Oxygen Flow Rate L Sodium 138 L (140-148) mmol/L Potassium 5.3 H (3.6-5.2) mmol/L Chloride 102 (100-108) mmol/L Carbon Dioxide 28 (21-32) mmol/L Anion Gap 13.3 (5.0-14.0) mmol/L BUN 36 H (7-18) mg/dL Creatinine 2.0 H (0.8-1.3) mg/dL Est Cr Clr Drug Dosing 34.37 mL/min Estimated GFR (MDRD) 33 L (>60) Glucose 125 H (74-106) mg/dL Lactic Acid 1.6 (0.4-2.0) mmol/L Calcium 8.6 (8.5-10.1) mg/dL Total Bilirubin 0.5 D (0.2-1.0) mg/dL AST 19 (15-37) U/L ALT 29 (12-78) U/L Alkaline Phosphatase 132 H (46-116) U/L Troponin I (0.000-0.056) ng/mL Kyu-W-Xjpbudzplmt Pept (5-125) pg/mL Total Protein 7.5 (6.4-8.2) g/dL Albumin 2.8 L (3.4-5.0) g/dL Globulin 4.7 H (2.3-3.5) g/dL Albumin/Globulin Ratio 0.6 L (1.2-2.2) Urine Color Urine Appearance Urine pH (4.5-8.0) Ur Specific [place] (1.008-1.030) Urine Protein (NEGATIVE) mg/dL Urine Glucose (UA) (NEGATIVE) mg/dL Urine Ketones (NEGATIVE) mg/dL Urine Occult Blood (NEGATIVE) Urine Nitrite (NEGAITVE) Urine Bilirubin (NEGATIVE) Urine Urobilinogen (NORMAL) mg/dL Ur Leukocyte Esterase (NEGATIVE) Urine RBC (0-5) Urine WBC (0-5) Ur Epithelial Cells Amorphous Sediment Urine Bacteria Urine Mucus 12/12/16 12/12/16 12/12/16 Range/Units 12:15 12:28 13:05 WBC (4.5-11.0) K/uL RBC (4.30-5.90) M/uL Hgb (12.0-15.0) g/dL Hct (40.0-54.0) % MCV (80-98) fL MCH (27-31) pg MCHC (32-36) % Plt Count (150-400) K/uL Neut % (Auto) (36-66) % Lymph % (Auto) (24-44) % [place] % (Auto) (2-6) % Eos % (Auto) (2-4) % Baso % (Auto) (0-1) % Puncture Site Lt radial ABG pH 7.380 (7.350-7.450) ABG pCO2 46.0 H (35.0-42.0) mmHg ABG pO2 79.4 (75.0-100.0) mmHg ABG HCO3 26.6 H (22.0-26.0) mmol/L ABG Total CO2 24.6 (23.0-27.0) mmol/L ABG O2 Saturation 95.1 (95.0-98.0) % ABG O2 Content 14.1 L (15.0-23.0) %vol ABG Base Excess 1.7 mm/L ABG Hemoglobin 10.7 L (13.5-18.0) g/dL ABG Oxyhemoglobin 93.1 % ABG Carboxyhemoglobin 1.3 (0.0-1.6) % ABG Methemoglobin 0.8 % Abdulaziz Test Pass O2 Delivery Device Bipap Oxygen Flow Rate L Sodium (140-148) mmol/L Potassium (3.6-5.2) mmol/L Chloride (100-108) mmol/L Carbon Dioxide (21-32) mmol/L Anion Gap (5.0-14.0) mmol/L BUN (7-18) mg/dL Creatinine (0.8-1.3) mg/dL Est Cr Clr Drug Dosing mL/min Estimated GFR (MDRD) (>60) Glucose (74-106) mg/dL Lactic Acid (0.4-2.0) mmol/L Calcium (8.5-10.1) mg/dL Total Bilirubin (0.2-1.0) mg/dL AST (15-37) U/L ALT (12-78) U/L Alkaline Phosphatase (46-116) U/L Troponin I < 0.017 (0.000-0.056) ng/mL Ujn-X-Crknrfaulyo Pept 3588 H (5-125) pg/mL Total Protein (6.4-8.2) g/dL Albumin (3.4-5.0) g/dL Globulin (2.3-3.5) g/dL Albumin/Globulin Ratio (1.2-2.2) Urine Color Yellow Urine Appearance Clear Urine pH 5.0 (4.5-8.0) Ur Specific [place] 1.010 (1.008-1.030) Urine Protein Negative (NEGATIVE) mg/dL Urine Glucose (UA) Normal (NEGATIVE) mg/dL Urine Ketones Negative (NEGATIVE) mg/dL Urine Occult Blood Negative (NEGATIVE) Urine Nitrite Negative (NEGAITVE) Urine Bilirubin Negative (NEGATIVE) Urine Urobilinogen Normal (NORMAL) mg/dL Ur Leukocyte Esterase Negative (NEGATIVE) Urine RBC 0-5 (0-5) Urine WBC 0-5 (0-5) Ur Epithelial Cells Not seen Amorphous Sediment Not seen Urine Bacteria Not seen Urine Mucus Not seen Result Diagrams: 12/12/16 12:15 12/12/16 12:15 *Q Meaningful Use (ADM) - VTE *Q VTE Criteria *Q: VTE Pharmacological Contraindications *Q: High INR Value - VTE Risk Assess *Q Each Risk Factor Represents 1 Point: Obesity (BMI greater than 30), Congestive Heart Failure, Less than 1 Month, Abnormal Pulmonary Function (COPD) Total Score 1 Point Risk Factors: 3 Each Risk Factor Represents 2 Points: Age 60 - 74 Years Total Score 2 Point Risk Factors: 2 Each Risk Factor Represents 3 Points: History Superficial Venous Thrombosis, DVT or PE Total Score 3 Point Risk Factors: 3 Each Risk Factor Represents 5 Points: None Total Score 5 Point Risk Factors: 0 Venous Thromboembolism Risk Factor Score *Q: 8 - Stroke *Q Stroke Criteria *Q: - AMI *Q AMI Criteria *Q: Problem List Initiated/Reviewed/Updated: Yes Orders Last 24hrs: Active Orders 24 hr Category Date Time Status Patient Status Manage Transfer [TRANSFER] Routine ADT 12/12/16 14:10 Active BIPAP Adult [RT BiPAP/CPAP] [RC] ASDIRECTED Care 12/12/16 11:54 Active Cardiac Monitoring [RC] .As Directed Care 12/12/16 11:54 Active Cardiac Monitoring [RC] .As Directed Care 12/12/16 14:10 Active EKG Documentation Completion [RC] ASDIRECTED Care 12/12/16 11:53 Active Peripheral IV Care [RC] . DIRECTED Care 12/12/16 11:54 Active RT Aerosol Therapy [RC] ASDIRECTED Care 12/12/16 11:58 Active Chest 1V Frontal [CR] Stat Exams 12/12/16 11:56 Taken Sodium Chloride 0.9% [Saline Flush] Med 12/12/16 11:54 Active 10 ml FLUSH ASDIRECTED PRN Peripheral IV Insertion Adult [OM.PC] Routine Oth 12/12/16 11:54 Ordered Resuscitation Status Routine Resus Stat 12/12/16 14:16 Ordered EKG 12 Lead [EK] Stat Ther 12/12/16 11:53 Ordered Medication Orders Sodium Chloride (Saline Flush) 10 ml FLUSH ASDIRECTED PRN PRN Reason: Keep Vein Open Last Admin: 12/12/16 13:29 Dose: 10 ml Assessment/Plan Comment:: ASSESSMENT AND PLAN CONGESTIVE HEART FAILURE-history of weight gain with shortness of breath over the past several days. He does have known decrease in left ventricular function , last echocardiogram more than 6 months. Currently is treated with diuretic as well as beta barbie. Not currently on JENNIFER inhibitor because of significant underlying kidney disease. -Continue beta barbie -2 g sodium diet -BiPAP, pending diuresis -Bumex 4 mg IV every 12 hours -Hold on JENNIFER inhibitor secondary to chronic kidney disease COPD-may be contributing to current hypoxia and respiratory compromise. No evidence of underlying respiratory tract infection at the present time. -Discontinue levofloxacin -Xopenex nebs twice daily and as needed -Continue other respiratory treatments -Solu-Medrol 40 mg IV every 6 hours HYPOXIA-secondary to congestive heart failure exacerbation -Management as above CHRONIC KIDNEY DISEASE STAGE III -Closely monitor urine output and renal function during hospital stay ATRIAL FIBRILLATION -Continue anticoagulation with warfarin -INR now and in a.m. -Continue current therapy with flecainide MAINTENANCE ISSUES -DVT prophylaxis; current therapy with warfarin should provide adequate DVT prophylaxis -GI prophylaxis; continue outpatient PPI therapy -Franks catheter; not indicated -Nutrition; 2 g sodium diet -Nicotine dependence; not required CODE STATUS-FULL CODE ADMISSION STATUS-patient will be admitted to inpatient status, expect at least a 2 night hospital stay for evaluation and management of problems as outlined above. At the time of this admission I do not reasonably expected evaluation and management of this problem will require more than a 96 hour hospital stay. DISPOSITION-anticipate discharge to home after the hospital stay. PRIMARY CARE PROVIDER-Dr. Walker
[2016-12-12] MEDS: Pantoprazole 40 MG Tab.CR PO SCH (16:12)
[2016-12-12] MEDS: Simvastatin 20 MG Tab PO SCH (16:12)
[2016-12-12] MEDS: Bumetanide 2.5 MG/10 ML MDV IVPUSH SCH (18:02)
[2016-12-12] MEDS: methylPREDNISolone Sodium Succinate 40 MG/1 ML SDV IVPUSH SCH (20:26)
[2016-12-12] MEDS: Formoterol/Mometasone 200-5 MCG 8.8 GM Inhaler IH SCH (20:26)
[2016-12-12] MEDS: Magnesium Oxide 400 MG Tab PO SCH (20:31)
[2016-12-12] MEDS: Melatonin 3 MG Tab PO SCH (20:31)
[2016-12-12] MEDS: Metoprolol Tartrate 50 MG Tab PO SCH (20:31)
[2016-12-12] MEDS: Gabapentin 400 MG Cap PO SCH (20:32)
[2016-12-12] MEDS: Flecainide 50 MG Tab PO SCH (20:32)
[2016-12-12] MEDS: Levalbuterol HCl 1.25 MG/3 ML Neb INH SCH (20:35)
[2016-12-13] MEDS: methylPREDNISolone Sodium Succinate 40 MG/1 ML SDV IVPUSH SCH ×3 (01:28→21:23)
[2016-12-13] MEDS: Bumetanide 2.5 MG/10 ML MDV IVPUSH SCH ×2 (07:03→18:32)
[2016-12-13] MEDS: Levalbuterol HCl 1.25 MG/3 ML Neb INH SCH ×2 (07:36→21:39)
[2016-12-13] MEDS: Formoterol/Mometasone 200-5 MCG 8.8 GM Inhaler IH SCH ×2 (07:39→21:27)
[2016-12-13] MEDS: Pantoprazole 40 MG Tab.CR PO SCH ×2 (07:54→17:55)
[2016-12-13] MEDS: Morphine 2 MG/ML Syringe IVPUSH PRN ×2 (08:19→18:08)
[2016-12-13] MEDS: Magnesium Oxide 400 MG Tab PO SCH ×2 (08:52→21:30)
[2016-12-13] MEDS: Polyethylene Glycol 3350 Powder 17 GM Packet PO SCH (08:52)
[2016-12-13] MEDS: Metoprolol Tartrate 50 MG Tab PO SCH ×2 (08:52→21:30)
[2016-12-13] MEDS: Sertraline 100 MG, Sertraline 25 MG PO SCH ×2 (08:53)
[2016-12-13] MEDS: Gabapentin 400 MG Cap PO SCH ×3 (08:53→21:30)
[2016-12-13] MEDS: Flecainide 50 MG Tab PO SCH ×2 (08:53→21:29)
[2016-12-13] MEDS ORDERED: SERTRALINE PO SCH (09:00)
--- NOTE | 2016-12-13 09:51 | PCM.PN ---
- General Info Date of Service: 12/13/16 Functional Status: Reports: pain controlled, tolerating diet - Review of Systems General: Reports: Weakness. Denies: Fever, Chills Pulmonary: Reports: shortness of breath, cough, wheezing. Denies: pleuritic chest pain, sputum, hemoptysis Cardiovascular: Reports: Dyspnea on Exertion, Edema. Denies: Chest Pain, Palpitations, Orthopnea, PND, Lightheadedness Gastrointestinal: Reports: No symptoms Systems Review Comment:: Mr. Anderson is improved since admission, with less shortness of breath and hypoxia. For the most part has refused to use the BiPAP and transferred from the emergency department to the ICU. He's had a good diuresis thus far with improvement in his peripheral edema. Vital signs have remained stable and he has been afebrile. - Patient Data Vitals - most recent: Last Vital Signs Temp 98.4 F 12/13/16 07:47 Pulse 64 12/13/16 09:00 Resp 15 12/13/16 09:00 BP 132/52 L 12/13/16 09:00 Pulse Ox 94 L 12/13/16 09:00 Weight - most recent: 216 lb I&O - last 24 hours: Intake & Output 12/12/16 12/13/16 12/13/16 22:59 06:59 14:59 Intake Total 720 240 620 Output Total 1450 600 650 Balance -730 -360 -30 Lab Results last 24 hrs: Laboratory Results - last 24 hr 12/12/16 12/13/16 12/13/16 Range/Units 14:39 06:04 06:04 WBC 6.1 (4.5-11.0) K/uL RBC 3.27 L (4.30-5.90) M/uL Hgb 9.6 L (12.0-15.0) g/dL Hct 30.2 L (40.0-54.0) % MCV 92 (80-98) fL MCH 29 (27-31) pg MCHC 32 (32-36) % Plt Count 243 (150-400) K/uL Neut % (Auto) 87 H (36-66) % Lymph % (Auto) 10 L (24-44) % [place] % (Auto) 3 (2-6) % Eos % (Auto) 0 L (2-4) % Baso % (Auto) 0 (0-1) % PT 33.9 H 43.0 H (9.5-12.0) sec INR 3.03 H 3.80 H (0.80-1.20) Sodium (140-148) mmol/L Potassium (3.6-5.2) mmol/L Chloride (100-108) mmol/L Carbon Dioxide (21-32) mmol/L Anion Gap (5.0-14.0) mmol/L BUN (7-18) mg/dL Creatinine (0.8-1.3) mg/dL Est Cr Clr Drug Dosing mL/min Estimated GFR (MDRD) (>60) Glucose (74-106) mg/dL Calcium (8.5-10.1) mg/dL Magnesium (1.8-2.4) mg/dL 12/13/16 Range/Units 06:04 WBC (4.5-11.0) K/uL RBC (4.30-5.90) M/uL Hgb (12.0-15.0) g/dL Hct (40.0-54.0) % MCV (80-98) fL MCH (27-31) pg MCHC (32-36) % Plt Count (150-400) K/uL Neut % (Auto) (36-66) % Lymph % (Auto) (24-44) % [place] % (Auto) (2-6) % Eos % (Auto) (2-4) % Baso % (Auto) (0-1) % PT (9.5-12.0) sec INR (0.80-1.20) Sodium 138 L (140-148) mmol/L Potassium 4.3 (3.6-5.2) mmol/L Chloride 102 (100-108) mmol/L Carbon Dioxide 31 (21-32) mmol/L Anion Gap 9.3 (5.0-14.0) mmol/L BUN 39 H (7-18) mg/dL Creatinine 2.0 H (0.8-1.3) mg/dL Est Cr Clr Drug Dosing 34.37 mL/min Estimated GFR (MDRD) 33 L (>60) Glucose 170 H (74-106) mg/dL Calcium 8.5 (8.5-10.1) mg/dL Magnesium 2.3 (1.8-2.4) mg/dL Med Orders - Current: Current Medications Acetaminophen (Tylenol) 650 mg PO Q4H PRN PRN Reason: Pain (Mild 1-3)/fever Bumetanide (Bumex) 2 mg IVPUSH Q12H [facility] Last Admin: 12/13/16 07:03 Dose: 2 mg Clonazepam (Klonopin) 1 mg PO BEDTIME PRN PRN Reason: Insomnia Docusate Sodium (Colace) 100 mg PO BID PRN PRN Reason: Constipation Flecainide Acetate (Tambocor) 150 mg PO BID [facility] Last Admin: 12/13/16 08:53 Dose: 150 mg Gabapentin (Neurontin) 400 mg PO TID [facility] Last Admin: 12/13/16 08:53 Dose: 400 mg Levalbuterol HCl (Xopenex) 1.25 mg INH BIDRT [facility] Last Admin: 12/13/16 07:36 Dose: 1.25 mg Levalbuterol HCl (Xopenex) 1.25 mg NEB Q4H PRN PRN Reason: Dyspnea Magnesium Hydroxide (Milk Of Magnesia) 30 ml PO Q12H PRN PRN Reason: Constipation Magnesium Oxide (Magnesium Oxide) 400 mg PO BID [facility] Last Admin: 12/13/16 08:52 Dose: 400 mg Melatonin (Melatonin) 9 mg PO BEDTIME [facility] Last Admin: 12/12/16 20:31 Dose: 9 mg Methylprednisolone Sodium Succinate (Solu-Medrol) 40 mg IVPUSH Q12H [facility] Metoprolol Tartrate (Lopressor) 50 mg PO BID [facility] Last Admin: 12/13/16 08:52 Dose: 50 mg Mometasone Furoate/Formoterol Fumar (Dulera 200-5 Mcg) 2 puff IH BIDRT [facility] Last Admin: 12/13/16 07:39 Dose: 2 puff Morphine Sulfate (Morphine) 7.5 mg PO Q3H PRN PRN Reason: Dyspnea Morphine Sulfate (Morphine) 2 mg IVPUSH Q1H PRN PRN Reason: Pain (severe 7-10) Last Admin: 12/13/16 08:19 Dose: 2 mg Ondansetron HCl (Zofran) 4 mg IV Q4H PRN PRN Reason: Nausea/Vomiting [facility]) [facility] Last Admin: 12/13/16 07:54 Dose: 40 mg Polyethylene Glycol (Miralax) 17 gm PO DAILY [facility] Last Admin: 12/13/16 08:52 Dose: 17 gm Polyethylene Glycol (Miralax) 17 gm PO DAILY PRN PRN Reason: Constipation Senna/Docusate Sodium (Senna Plus) 2 tab PO BID [facility] Last Admin: 12/13/16 08:53 Dose: 2 tab Sertraline HCl 100 mg/ (Sertraline HCl 25 mg) 125 mg PO DAILY [facility] Last Admin: 12/13/16 08:53 Dose: 125 mg Simvastatin (Zocor) 10 mg PO QPM [facility] Last Admin: 12/12/16 16:12 Dose: 10 mg Sodium Chloride (Saline Flush) 10 ml FLUSH ASDIRECTED PRN PRN Reason: Keep Vein Open Discontinued Medications Albuterol/Ipratropium (Duoneb 3.0-0.5 Mg/3 Ml) 3 ml NEB ONETIME ONE Stop: 12/12/16 11:57 Last Admin: 12/12/16 12:18 Dose: 3 ml Furosemide (Lasix) 40 mg IVPUSH ONETIME ONE Stop: 12/12/16 13:00 Last Admin: 12/12/16 13:27 Dose: 40 mg Methylprednisolone Sodium Succinate (Solu-Medrol) 125 mg IVPUSH ONETIME ONE Stop: 12/12/16 13:00 Last Admin: 12/12/16 13:29 Dose: 125 mg Methylprednisolone Sodium Succinate (Solu-Medrol) 40 mg IVPUSH Q6H [facility] Last Admin: 12/13/16 07:55 Dose: 40 mg Morphine Sulfate (Morphine) 4 mg IVPUSH ONETIME ONE Stop: 12/12/16 13:06 Last Admin: 12/12/16 13:28 Dose: 4 mg Sodium Chloride (Saline Flush) 10 ml FLUSH ASDIRECTED PRN PRN Reason: Keep Vein Open Last Admin: 12/12/16 13:29 Dose: 10 ml Warfarin Sodium (Coumadin) 1 mg PO DAILY@1300 [facility] Last Admin: 12/12/16 16:12 Dose: 1 mg - Exam Quality Assessment: supplemental oxygen, DVT prophylaxis General: alert, oriented, cooperative, no acute distress Lungs: Normal respiratory effort, Decreased breath sounds, Rales, Wheezing. No : Crackles, Rhonchi, Rub, Stridor Cardiovascular: Regular Rate, Irregular Rhythm, Murmurs. No: Bradycardia, Tachycardia Abdomen: bowel sounds present, soft, no tenderness, no distension Extremities: edema Skin: warm, dry, intact - Problem List Review Problem List Initiated/Reviewed/Updated: Yes - My Orders Last 24 Hours: My Active Orders 12/12/16 14:16 Resuscitation Status Routine 12/12/16 14:39 Patient Status [ADT] Routine BIPAP Adult [RT BiPAP/CPAP] [RC] ASDIRECTED Intake and Output [RC] QSHIFT Notify Provider Vital Signs [RC] ASDIRECTED Oxygen Therapy [RC] Q12H RT Aerosol Therapy [RC] ASDIRECTED Up With Assistance [RC] ASDIRECTED VTE/DVT Education [RC] Per Unit Routine Vital Signs [RC] Q4H PT Evaluation and Treatment [CONS] Routine Acetaminophen [Tylenol] 650 mg PO Q4H PRN Docusate Sodium [Colace] 100 mg PO BID PRN Levalbuterol HCl [Xopenex] 1.25 mg NEB Q4H PRN Magnesium Hydroxide [Milk of Magnesia] 30 ml PO Q12H PRN Morphine 2 mg IVPUSH Q1H PRN Ondansetron [Zofran] 4 mg IV Q4H PRN Polyethylene Glycol 3350 [MiraLAX] 17 gm PO DAILY PRN Sodium Chloride 0.9% [Saline Flush] 10 ml FLUSH ASDIRECTED PRN Saline Lock Insert [OM.PC] Routine Sequential Compression Device [OM.PC] Per Unit Routine VTE Pharmacological Contraindications [AST] Per Unit Routine 12/12/16 17:16 Oxygen Therapy Adult [Oxygen Therapy] [RC] ASDIRECTED 12/12/16 19:00 Bumetanide [Bumex] 2 mg IVPUSH Q12H 12/12/16 21:00 Melatonin 9 mg PO BEDTIME 12/12/16 Lunch 2 Gram Sodium Diet [DIET] 12/13/16 09:00 Sertraline [Zoloft] 125 mg PO DAILY 12/13/16 09:39 Cardiac Monitoring [RC] .As Directed 12/13/16 20:00 methylPREDNISolone Sod Succ [Solu-MEDROL] 40 mg IVPUSH Q12H 12/14/16 05:00 BASIC METABOLIC PANEL,BMP [CHEM] Timed INR,PT,PROTHROMBIN TIME [COAG] Timed 12/14/16 08:00 Echo Comp wo Cont [US] Urgent - Plan Plan:: ASSESSMENT AND PLAN CONGESTIVE HEART FAILURE-history of weight gain with shortness of breath over the past several days. He does have known decrease in left ventricular function , last echocardiogram more than 6 months. Currently is treated with diuretic as well as beta barbie. Not currently on JENNIFER inhibitor because of significant underlying kidney disease. -Continue beta barbie -2 g sodium diet -Bumex 4 mg IV every 12 hours -Hold on JENNIFER inhibitor secondary to chronic kidney disease -Echocardiogram to assess left ventricular function tomorrow COPD-may be contributing to current hypoxia and respiratory compromise. No evidence of underlying respiratory tract infection at the present time. -Discontinue levofloxacin -Xopenex nebs twice daily and as needed -Continue other respiratory treatments -Solu-Medrol 40 mg IV every 12 hours HYPOXIA-secondary to congestive heart failure exacerbation -Management as above 2 RECENT EPISODES OF SYNCOPE-by history sound to be vagal events -Continue cardiac monitoring -Echo in a.m. CHRONIC KIDNEY DISEASE STAGE III -Closely monitor urine output and renal function during hospital stay ATRIAL FIBRILLATION-INR today is supratherapeutic -Hold warfarin today, reassess in a.m. -INR in a.m. -Continue current therapy with flecainide MAINTENANCE ISSUES -DVT prophylaxis; current therapy with warfarin should provide adequate DVT prophylaxis -GI prophylaxis; continue outpatient PPI therapy -Franks catheter; not indicated -Nutrition; 2 g sodium diet -Nicotine dependence; not required CODE STATUS-FULL CODE ADMISSION STATUS-patient will be admitted to inpatient status, expect at least a 2 night hospital stay for evaluation and management of problems as outlined above. At the time of this admission I do not reasonably expected evaluation and management of this problem will require more than a 96 hour hospital stay. DISPOSITION-anticipate discharge to home after the hospital stay. PRIMARY CARE PROVIDER-Dr. Walker
[2016-12-13] MEDS: Simvastatin 20 MG Tab PO SCH (17:55)
[2016-12-13] MEDS: Morphine 15 MG Tab PO PRN (18:55)
[2016-12-13] MEDS: Melatonin 3 MG Tab PO SCH (21:29)
[2016-12-14] MEDS: Levalbuterol HCl 1.25 MG/3 ML Neb INH SCH ×2 (07:31→21:17)
[2016-12-14] MEDS: Formoterol/Mometasone 200-5 MCG 8.8 GM Inhaler IH SCH ×2 (07:32→21:13)
[2016-12-14] MEDS: Bumetanide 2.5 MG/10 ML MDV IVPUSH SCH (07:47)
[2016-12-14] MEDS: Pantoprazole 40 MG Tab.CR PO SCH ×2 (07:48→17:04)
[2016-12-14] MEDS: Morphine 15 MG Tab PO PRN (08:01)
[2016-12-14] MEDS: methylPREDNISolone Sodium Succinate 40 MG/1 ML SDV IVPUSH SCH (09:04)
[2016-12-14] MEDS: Magnesium Oxide 400 MG Tab PO SCH ×2 (09:05→21:12)
[2016-12-14] MEDS: Sertraline 100 MG, Sertraline 25 MG PO SCH ×2 (09:05)
[2016-12-14] MEDS: Gabapentin 400 MG Cap PO SCH ×3 (09:06→21:12)
[2016-12-14] MEDS: Polyethylene Glycol 3350 Powder 17 GM Packet PO SCH (09:07)
--- NOTE | 2016-12-14 09:23 | CR ---
Mild-moderate cardiomegaly. Interstitial thickening may reflect mild interstitial edema. Scarring ri ght upper lobe. No focal consolidation.
[2016-12-14] MEDS: Metoprolol Tartrate 25 MG Tab PO SCH ×2 (10:19→21:17)
[2016-12-14] MEDS: Flecainide 50 MG Tab PO SCH ×2 (10:20→21:11)
[2016-12-14] MEDS: Acetaminophen/HYDROcodone 325-5 MG Tab PO PRN (12:14)
--- NOTE | 2016-12-14 12:18 | PCM.PN ---
- General Info Date of Service: 12/14/16 Functional Status: Reports: pain controlled, tolerating diet - Review of Systems General: Reports: Weakness Pulmonary: Reports: shortness of breath Cardiovascular: Reports: Chest Pain Systems Review Comment:: No acute events overnight. Patient is still experiencing moderate chest pain from the chest compressions. Respiratory status has been stable. Heart rate has been on the low side with heart rates in the 40s to low 50s. No complaints of dizziness. He feels a little weak but otherwise feels okay. Appetite has been okay. He feels like his shortness of breath has been improving each day and his lower extremity edema has resolved. - Patient Data Vitals - most recent: Last Vital Signs Temp 36.2 C 12/14/16 11:00 Pulse 57 L 12/14/16 11:00 Resp 22 H 12/14/16 11:00 BP 148/82 H 12/14/16 11:00 Pulse Ox 86 L 12/14/16 11:00 Weight - most recent: 97.976 kg I&O - last 24 hours: Intake & Output 12/13/16 12/14/16 12/14/16 22:59 06:59 14:59 Intake Total 911 669 2618 Output Total 900 400 850 Balance -40 250 280 Lab Results last 24 hrs: Laboratory Results - last 24 hr 12/14/16 12/14/16 Range/Units 05:58 05:58 PT 47.5 H (9.5-12.0) sec INR 4.18 H* (0.80-1.20) Sodium 139 L (140-148) mmol/L Potassium 4.4 (3.6-5.2) mmol/L Chloride 103 (100-108) mmol/L Carbon Dioxide 33 H (21-32) mmol/L Anion Gap 7.4 (5.0-14.0) mmol/L BUN 44 H (7-18) mg/dL Creatinine 1.8 H (0.8-1.3) mg/dL Est Cr Clr Drug Dosing 38.19 mL/min Estimated GFR (MDRD) 37 L (>60) Glucose 129 H (74-106) mg/dL Calcium 8.3 L (8.5-10.1) mg/dL Med Orders - Current: Current Medications Acetaminophen (Tylenol) 650 mg PO Q4H PRN PRN Reason: Pain (Mild 1-3)/fever Hydrocodone Bitart/Acetaminophen ([place] 325-5 Mg) 1 - 2 tab PO Q4H PRN PRN Reason: Pain Last Admin: 12/14/16 12:14 Dose: 2 tab Clonazepam (Klonopin) 1 mg PO BEDTIME PRN PRN Reason: Insomnia Docusate Sodium (Colace) 100 mg PO BID PRN PRN Reason: Constipation Flecainide Acetate (Tambocor) 150 mg PO BID [facility] Last Admin: 12/14/16 10:20 Dose: 150 mg Gabapentin (Neurontin) 400 mg PO TID [facility] Last Admin: 12/14/16 09:06 Dose: 400 mg Levalbuterol HCl (Xopenex) 1.25 mg INH BIDRT [facility] Last Admin: 12/14/16 07:31 Dose: 1.25 mg Levalbuterol HCl (Xopenex) 1.25 mg NEB Q4H PRN PRN Reason: Dyspnea Magnesium Hydroxide (Milk Of Magnesia) 30 ml PO Q12H PRN PRN Reason: Constipation Magnesium Oxide (Magnesium Oxide) 400 mg PO BID [facility] Last Admin: 12/14/16 09:05 Dose: 400 mg Melatonin (Melatonin) 9 mg PO BEDTIME [facility] Last Admin: 12/13/16 21:29 Dose: 9 mg Metoprolol Tartrate (Lopressor) 25 mg PO BID [facility] Last Admin: 12/14/16 10:19 Dose: 25 mg Mometasone Furoate/Formoterol Fumar (Dulera 200-5 Mcg) 2 puff IH BIDRT [facility] Last Admin: 12/14/16 07:32 Dose: 2 puff Morphine Sulfate (Morphine) 7.5 mg PO Q3H PRN PRN Reason: Dyspnea Last Admin: 12/14/16 08:01 Dose: 7.5 mg Morphine Sulfate (Morphine) 2 mg IVPUSH Q1H PRN PRN Reason: Pain (severe 7-10) Last Admin: 12/13/16 18:08 Dose: 2 mg Ondansetron HCl (Zofran) 4 mg IV Q4H PRN PRN Reason: Nausea/Vomiting Pantoprazole Sodium (Protonix) 40 mg PO BIDAC [facility] Last Admin: 12/14/16 07:48 Dose: 40 mg Polyethylene Glycol (Miralax) 17 gm PO DAILY [facility] Last Admin: 12/14/16 09:07 Dose: 17 gm Polyethylene Glycol (Miralax) 17 gm PO DAILY PRN PRN Reason: Constipation Senna/Docusate Sodium (Senna Plus) 2 tab PO BID [facility] Last Admin: 12/14/16 09:06 Dose: 2 tab Sertraline HCl 100 mg/ (Sertraline HCl 25 mg) 125 mg PO DAILY [facility] Last Admin: 12/14/16 09:05 Dose: 125 mg Simvastatin (Zocor) 10 mg PO QPM [facility] Last Admin: 12/13/16 17:55 Dose: 10 mg Sodium Chloride (Saline Flush) 10 ml FLUSH ASDIRECTED PRN PRN Reason: Keep Vein Open Discontinued Medications Albuterol/Ipratropium (Duoneb 3.0-0.5 Mg/3 Ml) 3 ml NEB ONETIME ONE Stop: 12/12/16 11:57 Last Admin: 12/12/16 12:18 Dose: 3 ml Bumetanide (Bumex) 2 mg IVPUSH Q12H [facility] Last Admin: 12/14/16 07:47 Dose: 2 mg Furosemide (Lasix) 40 mg IVPUSH ONETIME ONE Stop: 12/12/16 13:00 Last Admin: 12/12/16 13:27 Dose: 40 mg Methylprednisolone Sodium Succinate (Solu-Medrol) 125 mg IVPUSH ONETIME ONE Stop: 12/12/16 13:00 Last Admin: 12/12/16 13:29 Dose: 125 mg Methylprednisolone Sodium Succinate (Solu-Medrol) 40 mg IVPUSH Q6H [facility] Last Admin: 12/13/16 07:55 Dose: 40 mg Methylprednisolone Sodium Succinate (Solu-Medrol) 40 mg IVPUSH Q12H [facility] Last Admin: 12/14/16 09:04 Dose: 40 mg Metoprolol Tartrate (Lopressor) 50 mg PO BID [facility] Last Admin: 12/13/16 21:30 Dose: 50 mg Morphine Sulfate (Morphine) 4 mg IVPUSH ONETIME ONE Stop: 12/12/16 13:06 Last Admin: 12/12/16 13:28 Dose: 4 mg Sodium Chloride (Saline Flush) 10 ml FLUSH ASDIRECTED PRN PRN Reason: Keep Vein Open Last Admin: 12/12/16 13:29 Dose: 10 ml Warfarin Sodium (Coumadin) 1 mg PO DAILY@1300 [facility] Last Admin: 12/12/16 16:12 Dose: 1 mg - Exam Quality Assessment: supplemental oxygen General: alert, oriented, cooperative, no acute distress Neck: supple Lungs: Clear to auscultation, Normal respiratory effort, Decreased breath sounds (mild at bases) Cardiovascular: Regular Rhythm, Bradycardia Abdomen: soft, no distension, other (hernia right mid abdomen and colostomy left mid abdomen ) Extremities: no edema, no cyanosis Skin: warm, dry Psy/Mental Status: alert, normal affect - Problem List Review Problem List Initiated/Reviewed/Updated: Yes - My Orders Last 24 Hours: My Active Orders 12/14/16 08:50 Acetaminophen/HYDROcodone [[place] 325-5 MG] 1 - 2 tab PO Q4H PRN 12/14/16 09:00 Metoprolol Tartrate [Lopressor] 25 mg PO BID 12/15/16 05:00 BASIC METABOLIC PANEL,BMP [CHEM] Timed HGB [HEMOGLOBIN] [HEME] Timed INR,PT,PROTHROMBIN TIME [COAG] Timed 12/15/16 08:00 predniSONE 20 mg PO WITHBREAKFAST 12/15/16 09:00 Torsemide [Demadex] 20 mg PO DAILY - Plan Plan:: ASSESSMENT AND PLAN CONGESTIVE HEART FAILURE WITH REDUCED SYSTOLIC FUNCTION - history of weight gain with shortness of breath over the days leading to admission. Clinically improving. Echocardiogram completed this morning and images are pending. Volume status seems to be appropriate based on bedside examination today. -Continue beta barbie but reduce dose with bradycardia -2 g sodium diet -Transition diuretics to torsemide with increase in dosing from home dose -Hold on JENNIFER inhibitor secondary to chronic kidney disease -Follow-up echocardiogram BRADYCARDIA - no significant symptoms but heart rate has been in the 40s and low 50s. This could explain his syncopal episodes. -Decrease beta barbie -Continue flecainide COPD - respiratory status stable, no evidence for acute exacerbation -Xopenex nebs twice daily and as needed -Continue other respiratory treatments -Transition steroids to prednisone and wean quickly HYPOXIA - secondary to congestive heart failure exacerbation, respiratory status and supplemental oxygen requirement stable -Management as above 2 RECENT EPISODES OF SYNCOPE - by history sound to be vagal events though bradycardia could be congenitally reading. Echocardiogram is pending. -Continue cardiac monitoring -Follow-up echocardiogram CHRONIC KIDNEY DISEASE STAGE III - Kidney function stable to improving. -Closely monitor urine output and renal function during hospital stay ATRIAL FIBRILLATION - INR today is slightly supratherapeutic. -Hold warfarin today, reassess in a.m. -INR in a.m. -Continue current therapy with flecainide MAINTENANCE ISSUES -DVT prophylaxis; current therapy with warfarin should provide adequate DVT prophylaxis -GI prophylaxis; continue outpatient PPI therapy -Nutrition; 2 g sodium diet DISPOSITION - anticipate discharge to [facility] after the hospital stay. Kieran Montiel M.D.
[2016-12-14] MEDS: Simvastatin 20 MG Tab PO SCH (17:05)
[2016-12-14] MEDS: Melatonin 3 MG Tab PO SCH (21:12)
[2016-12-15] MEDS: Formoterol/Mometasone 200-5 MCG 8.8 GM Inhaler IH SCH ×2 (07:27→21:30)
[2016-12-15] MEDS: Levalbuterol HCl 1.25 MG/3 ML Neb INH SCH ×2 (07:28→21:38)
[2016-12-15] MEDS: Pantoprazole 40 MG Tab.CR PO SCH ×2 (08:26→16:23)
[2016-12-15] MEDS: predniSONE 20 MG Tab PO SCH (08:27)
[2016-12-15] MEDS: Torsemide 20 MG Tab PO SCH (08:27)
[2016-12-15] MEDS: Polyethylene Glycol 3350 Powder 17 GM Packet PO SCH (08:28)
[2016-12-15] MEDS: Gabapentin 400 MG Cap PO SCH ×3 (08:28→21:32)
[2016-12-15] MEDS: Magnesium Oxide 400 MG Tab PO SCH ×2 (08:28→21:30)
[2016-12-15] MEDS: Acetaminophen/HYDROcodone 325-5 MG Tab PO PRN ×3 (08:29→17:30)
[2016-12-15] MEDS: Flecainide 50 MG Tab PO SCH ×2 (08:30→21:31)
[2016-12-15] MEDS: Sertraline 100 MG, Sertraline 25 MG PO SCH ×2 (08:30)
--- NOTE | 2016-12-15 14:09 | PCM.PN ---
- General Info Date of Service: 12/15/16 Functional Status: Reports: pain controlled, tolerating diet, ambulating - Review of Systems General: Reports: Weakness Cardiovascular: Reports: Chest Pain. Denies: Edema Systems Review Comment:: No acute events overnight. Still having a fair amount of chest pain, especially with stretching and coughing. Intermittently produces sputum with his cough. Heart rate has remained bradycardic but he has not had any dizziness or syncopal episodes. Kidney function continues to improve. Respiratory status has been stable. - Patient Data Vitals - most recent: Last Vital Signs Temp 36.6 C 12/15/16 11:25 Pulse 50 L 12/15/16 11:25 Resp 20 12/15/16 11:25 BP 142/76 H 12/15/16 11:25 Pulse Ox 95 12/15/16 11:25 Weight - most recent: 94.075 kg I&O - last 24 hours: Intake & Output 12/14/16 12/15/16 12/15/16 22:59 06:59 14:59 Intake Total 1000 900 Output Total 750 650 800 Balance 250 -650 100 Lab Results last 24 hrs: Laboratory Results - last 24 hr 12/15/16 12/15/16 12/15/16 Range/Units 05:00 05:00 05:00 Hgb 9.3 L (12.0-15.0) g/dL PT 37.0 H (9.5-12.0) sec INR 3.29 H (0.80-1.20) Sodium 141 (140-148) mmol/L Potassium 3.6 (3.6-5.2) mmol/L Chloride 103 (100-108) mmol/L Carbon Dioxide 33 H (21-32) mmol/L Anion Gap 8.6 (5.0-14.0) mmol/L BUN 44 H (7-18) mg/dL Creatinine 1.5 H (0.8-1.3) mg/dL Est Cr Clr Drug Dosing 45.67 mL/min Estimated GFR (MDRD) 46 L (>60) Glucose 101 (74-106) mg/dL Calcium 8.3 L (8.5-10.1) mg/dL Med Orders - Current: Current Medications Acetaminophen (Tylenol) 650 mg PO Q4H PRN PRN Reason: Pain (Mild 1-3)/fever Hydrocodone Bitart/Acetaminophen ([place] 325-5 Mg) 1 - 2 tab PO Q4H PRN PRN Reason: Pain Last Admin: 12/15/16 13:12 Dose: 2 tab Clonazepam (Klonopin) 1 mg PO BEDTIME PRN PRN Reason: Insomnia Docusate Sodium (Colace) 100 mg PO BID PRN PRN Reason: Constipation Flecainide Acetate (Tambocor) 150 mg PO BID [facility] Last Admin: 12/15/16 08:30 Dose: 150 mg Gabapentin (Neurontin) 400 mg PO TID [facility] Last Admin: 12/15/16 13:12 Dose: 400 mg Levalbuterol HCl (Xopenex) 1.25 mg INH BIDRT [facility] Last Admin: 12/15/16 07:28 Dose: 1.25 mg Levalbuterol HCl (Xopenex) 1.25 mg NEB Q4H PRN PRN Reason: Dyspnea Magnesium Hydroxide (Milk Of Magnesia) 30 ml PO Q12H PRN PRN Reason: Constipation Magnesium Oxide (Magnesium Oxide) 400 mg PO BID [facility] Last Admin: 12/15/16 08:28 Dose: 400 mg Melatonin (Melatonin) 9 mg PO BEDTIME [facility] Last Admin: 12/14/16 21:12 Dose: 9 mg Mometasone Furoate/Formoterol Fumar (Dulera 200-5 Mcg) 2 puff IH BIDRT [facility] Last Admin: 12/15/16 07:27 Dose: 2 puff Morphine Sulfate (Morphine) 7.5 mg PO Q3H PRN PRN Reason: Dyspnea Last Admin: 12/14/16 08:01 Dose: 7.5 mg Morphine Sulfate (Morphine) 2 mg IVPUSH Q1H PRN PRN Reason: Pain (severe 7-10) Last Admin: 12/13/16 18:08 Dose: 2 mg Ondansetron HCl (Zofran) 4 mg IV Q4H PRN PRN Reason: Nausea/Vomiting Pantoprazole Sodium (Protonix) 40 mg PO BIDAC [facility] Last Admin: 12/15/16 08:26 Dose: 40 mg Polyethylene Glycol (Miralax) 17 gm PO DAILY [facility] Last Admin: 12/15/16 08:28 Dose: 17 gm Polyethylene Glycol (Miralax) 17 gm PO DAILY PRN PRN Reason: Constipation Potassium Chloride (Klor-Con M20) 40 meq PO ONETIME ONE Stop: 12/15/16 14:05 Prednisone (Prednisone) 20 mg PO WITHBREAKFAST [facility] Last Admin: 12/15/16 08:27 Dose: 20 mg Senna/Docusate Sodium (Senna Plus) 2 tab PO BID [facility] Last Admin: 12/15/16 08:28 Dose: 2 tab Sertraline HCl 100 mg/ (Sertraline HCl 25 mg) 125 mg PO DAILY [facility] Last Admin: 12/15/16 08:30 Dose: 125 mg Simvastatin (Zocor) 10 mg PO QPM [facility] Last Admin: 12/14/16 17:05 Dose: 10 mg Sodium Chloride (Saline Flush) 10 ml FLUSH ASDIRECTED PRN PRN Reason: Keep Vein Open Torsemide (Demadex) 20 mg PO DAILY [facility] Last Admin: 12/15/16 08:27 Dose: 20 mg Discontinued Medications Albuterol/Ipratropium (Duoneb 3.0-0.5 Mg/3 Ml) 3 ml NEB ONETIME ONE Stop: 12/12/16 11:57 Last Admin: 12/12/16 12:18 Dose: 3 ml Bumetanide (Bumex) 2 mg IVPUSH Q12H [facility] Last Admin: 12/14/16 07:47 Dose: 2 mg Furosemide (Lasix) 40 mg IVPUSH ONETIME ONE Stop: 12/12/16 13:00 Last Admin: 12/12/16 13:27 Dose: 40 mg Methylprednisolone Sodium Succinate (Solu-Medrol) 125 mg IVPUSH ONETIME ONE Stop: 12/12/16 13:00 Last Admin: 12/12/16 13:29 Dose: 125 mg Methylprednisolone Sodium Succinate (Solu-Medrol) 40 mg IVPUSH Q6H [facility] Last Admin: 12/13/16 07:55 Dose: 40 mg Methylprednisolone Sodium Succinate (Solu-Medrol) 40 mg IVPUSH Q12H [facility] Last Admin: 12/14/16 09:04 Dose: 40 mg Metoprolol Tartrate (Lopressor) 50 mg PO BID [facility] Last Admin: 12/13/16 21:30 Dose: 50 mg Metoprolol Tartrate (Lopressor) 25 mg PO BID [facility] Last Admin: 12/14/16 21:17 Dose: 25 mg Morphine Sulfate (Morphine) 4 mg IVPUSH ONETIME ONE Stop: 12/12/16 13:06 Last Admin: 12/12/16 13:28 Dose: 4 mg Sodium Chloride (Saline Flush) 10 ml FLUSH ASDIRECTED PRN PRN Reason: Keep Vein Open Last Admin: 12/12/16 13:29 Dose: 10 ml Warfarin Sodium (Coumadin) 1 mg PO DAILY@1300 [facility] Last Admin: 12/12/16 16:12 Dose: 1 mg - Exam Quality Assessment: supplemental oxygen General: alert, oriented, cooperative, no acute distress Neck: supple Lungs: Clear to auscultation, Normal respiratory effort Cardiovascular: Regular Rhythm, Bradycardia Abdomen: soft, no distension Extremities: no edema, no cyanosis Skin: warm, dry Psy/Mental Status: alert, normal affect - Problem List Review Problem List Initiated/Reviewed/Updated: Yes - My Orders Last 24 Hours: My Active Orders 12/15/16 08:00 predniSONE 20 mg PO WITHBREAKFAST 12/15/16 09:00 Torsemide [Demadex] 20 mg PO DAILY 12/15/16 14:04 Potassium Chloride [Klor-Con M20] 40 meq PO ONETIME ONE 12/15/16 Dinner Regular Diet [DIET] 12/16/16 05:00 BASIC METABOLIC PANEL,BMP [CHEM] Timed INR,PT,PROTHROMBIN TIME [COAG] Timed - Plan Plan:: ASSESSMENT AND PLAN CONGESTIVE HEART FAILURE WITH REDUCED SYSTOLIC FUNCTION - history of weight gain with shortness of breath over the days leading to admission. Clinically improving. Echocardiogram shows a normal ejection fraction and severe pulmonary hypertension. Volume status seems to be appropriate based on bedside examination today. -Discontinue beta barbie with persistent bradycardia -2 g sodium diet -Continue oral diuretics -Hold on JENNIFER inhibitor secondary to chronic kidney disease BRADYCARDIA - no significant symptoms but heart rate remains bradycardic. Possible accumulation of flecainide with decreased renal function. -discontinue beta barbie -Continue flecainide, consider decreasing dose to 100 mg COPD - respiratory status stable, no evidence for acute exacerbation -Xopenex nebs twice daily and as needed -Continue other respiratory treatments -Transition steroids to prednisone and wean quickly HYPOXIA - secondary to congestive heart failure exacerbation, respiratory status and supplemental oxygen requirement stable. -Management as above 2 RECENT EPISODES OF SYNCOPE - by history sound to be vagal events though bradycardia could be congenitally reading. Echocardiogram shows normal ejection fraction. -Continue cardiac monitoring CHRONIC KIDNEY DISEASE STAGE III - Kidney function slowly improving. -Closely monitor urine output and renal function during hospital stay ATRIAL FIBRILLATION - INR today is still slightly supratherapeutic. -Hold warfarin today, reassess in a.m. -INR in a.m. -Continue current therapy with flecainide MAINTENANCE ISSUES -DVT prophylaxis; current therapy with warfarin should provide adequate DVT prophylaxis -GI prophylaxis; continue outpatient PPI therapy -Nutrition; 2 g sodium diet DISPOSITION - anticipate discharge to half-way after the hospital stay, probably tomorrow Kieran Montiel M.D.
[2016-12-15] MEDS ORDERED: Potassium Chloride 20 MEQ Tab.ER PO ONE (14:30)
[2016-12-15] MEDS: Simvastatin 20 MG Tab PO SCH (16:22)
[2016-12-15] MEDS: Melatonin 3 MG Tab PO SCH (21:32)
[2016-12-15] MEDS: Morphine 15 MG Tab PO PRN (21:38)
[2016-12-16] MEDS: Acetaminophen/HYDROcodone 325-5 MG Tab PO PRN ×2 (03:49→10:49)
[2016-12-16] MEDS: Levalbuterol HCl 1.25 MG/3 ML Neb INH SCH (07:10)
[2016-12-16] MEDS: Formoterol/Mometasone 200-5 MCG 8.8 GM Inhaler IH SCH (07:10)
[2016-12-16] MEDS: Pantoprazole 40 MG Tab.CR PO SCH (10:12)
[2016-12-16] MEDS: predniSONE 20 MG Tab PO SCH (10:44)
[2016-12-16] MEDS: Magnesium Oxide 400 MG Tab PO SCH (10:45)
[2016-12-16] MEDS: Torsemide 20 MG Tab PO SCH (10:45)
[2016-12-16] MEDS: Gabapentin 400 MG Cap PO SCH (10:45)
[2016-12-16] MEDS ORDERED: Potassium Chloride 20 MEQ Tab.ER PO ONE (10:45)
[2016-12-16] MEDS: Sertraline 100 MG, Sertraline 25 MG PO SCH ×2 (10:45)
[2016-12-16] MEDS: Flecainide 50 MG Tab PO SCH (10:45)
[2016-12-16] MEDS: Polyethylene Glycol 3350 Powder 17 GM Packet PO SCH (10:45)
--- NOTE | 2016-12-16 11:27 | PCM.DCSUM1 ---
Discharge Summary - Hospital Course Brief History: 71-year-old male with complicated medical history including recent episode of unresponsiveness necessitating chest compressions who presented with increasing shortness of breath and weight gain. He was admitted for management of congestive heart failure exacerbation. - Discharge Data Discharge Date: 12/16/16 Discharge Disposition: DC/Tfer to SNF 03 Condition: Good - Discharge Diagnosis/Problem(s) (1) Vasovagal syncope SNOMED Code(s): 056082279, 531725743 ICD Code: R55 - SYNCOPE AND COLLAPSE Status: Acute Current Visit: No (2) CHF exacerbation SNOMED Code(s): 97518989 ICD Code: I50.9 - HEART FAILURE, UNSPECIFIED Status: Acute Current Visit : Yes Qualifiers: Congestive heart failure type: diastolic Qualified Code(s): I50.33 - Acute on chronic diastolic (congestive) heart failure (3) Acute chest wall pain SNOMED Code(s): 931851313 ICD Code: R07.89 - OTHER CHEST PAIN Status: Acute Current Visit: Yes (4) Bradycardia SNOMED Code(s): 03314761 ICD Code: R00.1 - BRADYCARDIA, UNSPECIFIED Status: Acute Current Visit: Yes (5) Stage III chronic kidney disease SNOMED Code(s): 071131192 ICD Code: N18.3 - CHRONIC KIDNEY DISEASE, STAGE 3 (MODERATE) Status: Acute Current Visit: Yes - Patient Summary/Data Consults: Consultations 12/12/16 14:39 PT Evaluation and Treatment [CONS] Routine Please Evaluate and Treat. PT Reason for Consult: Strengthening This query below is only for informational purposes and is not editable. Hospital Course: Zaid presented to the emergency room with increasing shortness of breath and weight gain. Workup in the emergency room was suggestive of exacerbation of congestive heart failure and he was admitted to the hospital for diuresis. He was started on IV bumetanide and had a good response with decreasing weight and improving respiratory status. As his respiratory status improved we're able to transition him back to his usual diuretic regimen. He has maintained appropriate volume status during the last few days of hospital stay. We did obtain an echocardiogram which showed a normal ejection fraction but did show mitral regurgitation as well as tricuspid regurgitation and severe pulmonary hypertension. He did have a mild decrease in his renal function from baseline but this has returned to normal during the course of the hospital stay. He has had a few episodes of syncope/unresponsiveness over the past few months. No exact cause has been determined to this point. During the hospital stay he was noted to have episodes of bradycardia with heart rates in the 40s. He did not have significant symptoms with this but if these episodes happened while he was active they certainly could contribute to his syncope. His creatinine clearance is borderline for his current dose of flecainide and I did elect to decrease this dose down to 100 mg twice daily. I also decreased his metoprolol from 50 down to 25 mg twice daily. his heart rate has been in the 50's and lower 60s following medication changes. I suspect his heart rate will increase some as his larger dose of flecainide is metabolized. Goal heart rate would be in the 60-80 range. hopefully these medication changes will limited his syncopal episodes. We also encountered some difficulty with chest wall pain during the hospital stay. He did have a recent episode that required several chest compressions before he became responsive. He is complaining of moderately severe pain with respiration and movement. Pain control has improved with increasing his hydrocodone from 5 to 10 mg. He was counseled that this will likely take weeks for the pain to get better and completely resolved. - Patient Instructions Diet: Heart Healthy Diet Activity: As Tolerated Driving: Do Not Drive (if taking pain pills) Showering/Bathing: May Shower Notify Provider of: Fever, Increased Pain, Nausea and/or Vomiting Other/Special Instructions: 1. You the hospital for treatment after an episode of unresponsiveness and administration of CPR. Workup in the emergency room was suggestive of a mild exacerbation of congestive heart failure. There is also evidence for mild bradycardia and a mild decrease in your kidney function from baseline. We have managed the heart failure exacerbation with diuretics and have had good results. Your kidney function has returned to baseline. Your heart rate has improved with decreases in your beta barbie medication as well as flecainide. 2. Code status - Full code. 3. Referral to physical and occupational therapy for strengthening after an acute hospital stay. 4. Please seek medical attention if you develop fever greater than 101, have sudden worsening of your breathing, have recurrence of your syncope or develop persistent vomiting or diarrhea. - Discharge Plan Prescriptions/Med Rec: Flecainide Acetate 100 mg PO BID #60 tablet Hydrocodone/Acetaminophen [[place] 5-325] 2 tab PO Q4H PRN #240 tablet PRN Reason: Pain Metoprolol Tartrate [Lopressor] 25 mg PO BID #60 tablet Home Medications: Home Meds Gabapentin [Neurontin] 400 mg PO TID 03/12/15 [History] Pantoprazole [ProTONIX] 40 mg PO BIDAC #60 tab.cr 03/15/15 [Rx] Melatonin 3 mg PO BEDTIME 05/07/15 [History] Sennosides/Docusate Sodium [Senna-Docusate Sodium] 2 tab PO BID 07/14/15 [ History] ClonazePAM [KlonoPIN] 1 mg PO BEDTIME PRN 08/10/15 [History] Levalbuterol HCl 1 ampule IH BID 08/10/15 [History] Sertraline [Zoloft] 125 mg PO QAM 08/10/15 [History] Simvastatin [Zocor] 10 mg PO QPM 08/10/15 [History] Lactulose [Cephulac] 30 ml PO DAILY PRN 08/31/15 [History] Polyethylene Glycol 3350 [MiraLAX] 17 gm PO DAILY 03/11/16 [History] Torsemide 10 mg PO DAILY 03/11/16 [History] Warfarin [Coumadin] 2 mg PO ASDIRECTED 03/11/16 [History] Albuterol [Proair HFA] 2 puff INH Q4HR PRN 11/04/16 [History] Magnesium Oxide [Magnesium] 420 mg PO BID 11/04/16 [History] Mometasone/Formoterol [Dulera 200-5 MCG] 2 puff INH BIDRT 11/04/16 [History] Potassium Chloride 40 meq PO BIDAC 11/04/16 [History] Warfarin [Coumadin] 1 mg PO ASDIRECTED 11/04/16 [History] Acetaminophen [Tylenol] 650 mg PO TID 12/07/16 [History] Zkydu-T-Ynadapgiggfvq [Beano] 1 each PO TIDAC 12/07/16 [History] Dextran 70/Hypromellose [Artificial Tears Eye Drops] 2 drop OP BID 12/07/16 [ History] Morphine Sulfate 7.5 mg PO Q3H PRN 12/07/16 [History] Vit E Acetate/Gly/Dimeth/Water [Cetaphil Moisturizing Lotion] 1 applic TOP DAILY 12/07/16 [History] Calcium Carbonate [Tums] 1,000 mg PO TID PRN 12/12/16 [History] Flecainide Acetate 100 mg PO BID #60 tablet 12/16/16 [Rx] Hydrocodone/Acetaminophen [[place] 5-325] 2 tab PO Q4H PRN #240 tablet 12/16/16 [ Rx] Metoprolol Tartrate [Lopressor] 25 mg PO BID #60 tablet 12/16/16 [Rx] Patient Handouts: Flecainide tablets, Bradycardia Referrals: Yg Walker MD [Primary Care Provider] - (follow-up in 1-2 weeks after the hospital stay - follow-up hospital stay for syncope,CHF exacerbation and chest wall pain) - Discharge Summary/Plan Comment DC Time >30 min.: Yes (40 - [facility] discharge ) - Patient Data Vitals - Most Recent: Last Vital Signs Temp 35.7 C 12/16/16 07:45 Pulse 51 L 12/16/16 07:45 Resp 18 12/16/16 07:45 BP 134/72 12/16/16 07:45 Pulse Ox 98 12/16/16 07:45 Weight - Most Recent: 94.12 kg I&O - Last 24 hours: Intake & Output 12/15/16 12/16/16 12/16/16 22:59 06:59 14:59 Intake Total 800 240 Output Total 1925 250 650 Balance -1125 -250 -410 Lab Results - Last 24 hrs: Laboratory Results - last 24 hr 12/16/16 12/16/16 Range/Units 05:59 05:59 PT 24.0 H (9.5-12.0) sec INR 2.17 H (0.80-1.20) Sodium 142 (140-148) mmol/L Potassium 3.4 L (3.6-5.2) mmol/L Chloride 103 (100-108) mmol/L Carbon Dioxide 35 H (21-32) mmol/L Anion Gap 7.4 (5.0-14.0) mmol/L BUN 42 H (7-18) mg/dL Creatinine 1.7 H (0.8-1.3) mg/dL Est Cr Clr Drug Dosing 40.30 mL/min Estimated GFR (MDRD) 40 L (>60) Glucose 107 H (74-106) mg/dL Calcium 8.1 L (8.5-10.1) mg/dL Med Orders - Current: Current Medications Acetaminophen (Tylenol) 650 mg PO Q4H PRN PRN Reason: Pain (Mild 1-3)/fever Last Admin: 12/15/16 22:30 Dose: 650 mg Hydrocodone Bitart/Acetaminophen ([place] 325-5 Mg) 1 - 2 tab PO Q4H PRN PRN Reason: Pain Last Admin: 12/16/16 10:49 Dose: 2 tab Clonazepam (Klonopin) 1 mg PO BEDTIME PRN PRN Reason: Insomnia Last Admin: 12/15/16 22:29 Dose: 1 mg Docusate Sodium (Colace) 100 mg PO BID PRN PRN Reason: Constipation Flecainide Acetate (Tambocor) 150 mg PO BID [facility] Last Admin: 12/16/16 10:45 Dose: 150 mg Gabapentin (Neurontin) 400 mg PO TID [facility] Last Admin: 12/16/16 10:45 Dose: 400 mg Levalbuterol HCl (Xopenex) 1.25 mg INH BIDRT [facility] Last Admin: 12/16/16 07:10 Dose: 1.25 mg Levalbuterol HCl (Xopenex) 1.25 mg NEB Q4H PRN PRN Reason: Dyspnea Magnesium Hydroxide (Milk Of Magnesia) 30 ml PO Q12H PRN PRN Reason: Constipation Magnesium Oxide (Magnesium Oxide) 400 mg PO BID [facility] Last Admin: 12/16/16 10:45 Dose: 400 mg Melatonin (Melatonin) 9 mg PO BEDTIME [facility] Last Admin: 12/15/16 21:32 Dose: 9 mg Mometasone Furoate/Formoterol Fumar (Dulera 200-5 Mcg) 2 puff IH BIDRT [facility] Last Admin: 12/16/16 07:10 Dose: 2 puff Morphine Sulfate (Morphine) 7.5 mg PO Q3H PRN PRN Reason: Dyspnea Last Admin: 12/15/16 21:38 Dose: 7.5 mg Morphine Sulfate (Morphine) 2 mg IVPUSH Q1H PRN PRN Reason: Pain (severe 7-10) Last Admin: 12/13/16 18:08 Dose: 2 mg Ondansetron HCl (Zofran) 4 mg IV Q4H PRN PRN Reason: Nausea/Vomiting Pantoprazole Sodium (Protonix) 40 mg PO BIDAC [facility] Last Admin: 12/16/16 10:12 Dose: 40 mg Polyethylene Glycol (Miralax) 17 gm PO DAILY [facility] Last Admin: 12/16/16 10:45 Dose: 17 gm Polyethylene Glycol (Miralax) 17 gm PO DAILY PRN PRN Reason: Constipation Prednisone (Prednisone) 20 mg PO WITHBREAKFAST [facility] Last Admin: 12/16/16 10:44 Dose: 20 mg Senna/Docusate Sodium (Senna Plus) 2 tab PO BID [facility] Last Admin: 12/16/16 10:45 Dose: 2 tab Sertraline HCl 100 mg/ (Sertraline HCl 25 mg) 125 mg PO DAILY [facility] Last Admin: 12/16/16 10:45 Dose: 125 mg Simvastatin (Zocor) 10 mg PO QPM [facility] Last Admin: 12/15/16 16:22 Dose: 10 mg Sodium Chloride (Saline Flush) 10 ml FLUSH ASDIRECTED PRN PRN Reason: Keep Vein Open Torsemide (Demadex) 20 mg PO DAILY [facility] Last Admin: 12/16/16 10:45 Dose: 20 mg Discontinued Medications Albuterol/Ipratropium (Duoneb 3.0-0.5 Mg/3 Ml) 3 ml NEB ONETIME ONE Stop: 12/12/16 11:57 Last Admin: 12/12/16 12:18 Dose: 3 ml Bumetanide (Bumex) 2 mg IVPUSH Q12H [facility] Last Admin: 12/14/16 07:47 Dose: 2 mg Furosemide (Lasix) 40 mg IVPUSH ONETIME ONE Stop: 12/12/16 13:00 Last Admin: 12/12/16 13:27 Dose: 40 mg Methylprednisolone Sodium Succinate (Solu-Medrol) 125 mg IVPUSH ONETIME ONE Stop: 12/12/16 13:00 Last Admin: 12/12/16 13:29 Dose: 125 mg Methylprednisolone Sodium Succinate (Solu-Medrol) 40 mg IVPUSH Q6H [facility] Last Admin: 12/13/16 07:55 Dose: 40 mg Methylprednisolone Sodium Succinate (Solu-Medrol) 40 mg IVPUSH Q12H [facility] Last Admin: 12/14/16 09:04 Dose: 40 mg Metoprolol Tartrate (Lopressor) 50 mg PO BID [facility] Last Admin: 12/13/16 21:30 Dose: 50 mg Metoprolol Tartrate (Lopressor) 25 mg PO BID [facility] Last Admin: 12/14/16 21:17 Dose: 25 mg Morphine Sulfate (Morphine) 4 mg IVPUSH ONETIME ONE Stop: 12/12/16 13:06 Last Admin: 12/12/16 13:28 Dose: 4 mg Potassium Chloride (Klor-Con M20) 40 meq PO ONETIME ONE Stop: 12/15/16 14:31 Last Admin: 12/15/16 15:31 Dose: 40 meq Potassium Chloride (Klor-Con M20) 40 meq PO ONETIME ONE Stop: 12/16/16 10:46 Last Admin: 12/16/16 10:46 Dose: 40 meq Sodium Chloride (Saline Flush) 10 ml FLUSH ASDIRECTED PRN PRN Reason: Keep Vein Open Last Admin: 12/12/16 13:29 Dose: 10 ml Warfarin Sodium (Coumadin) 1 mg PO DAILY@1300 [facility] Last Admin: 12/12/16 16:12 Dose: 1 mg *Q Meaningful Use (DIS) - VTE *Q VTE Criteria *Q: VTE Pharmacological Contraindications *Q: High INR Value - Stroke *Q Stroke Criteria *Q: - AMI *Q AMI Criteria *Q:
[2016-12-16 13:47] VITALS: BP 128/66
== END 2016-12-16 14:10 | DRG 291 ==
LOC: JP.ED 11:40 → JP.ICU 14:10 → JP.MS 12-13 13:00
PROVIDERS: ADMIT Hospitalist; ATTEND Internal Medicine
DX: I13.0 Hypertensive heart and chronic kidney disease with heart failure and stage 1 through stage 4 chronic kidney disease, or unspecified chronic kidney disease (principal); I50.33 Acute on chronic diastolic (congestive) heart failure; N18.3 Chronic kidney disease, stage 3 (moderate); I48.91 Unspecified atrial fibrillation; Z79.01 Long term (current) use of anticoagulants; J44.9 Chronic obstructive pulmonary disease, unspecified; R09.02 Hypoxemia; Z87.891 Personal history of nicotine dependence; R07.89 Other chest pain; R06.02 Shortness of breath; R55 Syncope and collapse; R00.1 Bradycardia, unspecified; I25.10 Atherosclerotic heart disease of native coronary artery without angina pectoris; F41.9 Anxiety disorder, unspecified; F32.9 Major depressive disorder, single episode, unspecified; F43.10 Post-traumatic stress disorder, unspecified; I34.0 Nonrheumatic mitral (valve) insufficiency; I07.1 Rheumatic tricuspid insufficiency; Z85.528 Personal history of other malignant neoplasm of kidney; K59.09 Other constipation; Z87.01 Personal history of pneumonia (recurrent); H54.7 Unspecified visual loss; Z88.8 Allergy status to other drugs, medicaments and biological substances; I27.2 Other secondary pulmonary hypertension
CPT/HCPCS: 36415; 36600; 71010 ×2; 80053; 81001; 82803; 83605; 83880; 84484; 85025; 93005; 94640; 94660; 96374; 96375; 99285; J1940; J2270; J2930; J7050; J7620; 80048; 83735; 85018; 85610; 93010; 93306; 97161-GP; A9270-GY; J2920; S0171

== ENCOUNTER 2017-04-05 06:03 | Emergency (ER) | payer MEDICARE, MEDICAID ==
[2017-04-05] MEDS ORDERED: Sodium Chloride 0.9% 10 ML Syringe FLUSH PRN (06:19)
[2017-04-05] MEDS ORDERED: Diltiazem 25 MG/5 ML SDV IVPUSH ONE (06:21)
[2017-04-05] MEDS ORDERED: Aspirin 300 MG Supp RECTAL ONE (06:22)
[2017-04-05] MEDS ORDERED: Morphine 2 MG/ML Syringe IVPUSH PRN (06:23)
[2017-04-05] MEDS ORDERED: Nitroglycerin 0.4 MG Tab.SL SL PRN (06:23)
[2017-04-05] MEDS ORDERED: Ondansetron 4 MG/2 ML SDV IVPUSH ONE (06:24)
[2017-04-05] MEDS ORDERED: Diltiazem 100 MG in Sodium Chloride 0.9% 100 ML IV SCH (06:30)
--- NOTE | 2017-04-05 06:32 | EDM.PDOC ---
<OfficerKingsley - Last Filed: 04/05/17 06:26> ED HPI GENERAL MEDICAL PROBLEM - General Chief Complaint: Chest Pain Stated Complaint: MEDICAL VIA [facility] Time Seen by Provider: 04/05/17 06:18 Source of Information: Reports: EMS, Old Records, RN Notes Reviewed History Limitations: Reports: Respiratory Distress - History of Present Illness INITIAL COMMENTS - FREE TEXT/NARRATIVE: 72-year-old gentleman known history coronary artery disease, COPD, atrial flutter/fibrillation on chronic anticoagulation [facility] resident found by staff this morning complaining of chest pain and shortness of breath. Brought in by EMS services this morning in severe respiratory distress on CPAP, he can only speak in single word sentences he does complain of chest pain and shortness breath of therefore the majority of this H&P is taken from chart review - Related Data Allergies Allergy/AdvReac Type Severity Reaction Status Date / Time albuterol Allergy Cannot Verified 04/05/17 06:18 Remember digoxin AdvReac Confusion Verified 04/05/17 06:18 Home Meds: Home Meds Gabapentin [Neurontin] 400 mg PO TID 03/12/15 [History] ClonazePAM [KlonoPIN] 1 mg PO BEDTIME PRN 08/10/15 [History] Levalbuterol HCl 1 ampule IH BID 08/10/15 [History] Polyethylene Glycol 3350 [MiraLAX] 17 gm PO DAILY 03/11/16 [History] Warfarin [Coumadin] 2 mg PO ASDIRECTED 03/11/16 [History] Albuterol [Proair HFA] 2 puff INH Q4HR PRN 11/04/16 [History] Mometasone/Formoterol [Dulera 200-5 MCG] 2 puff INH BIDRT 11/04/16 [History] Warfarin [Coumadin] 1 mg PO ASDIRECTED 11/04/16 [History] Acetaminophen [Tylenol] 650 mg PO TID 12/07/16 [History] Edajl-T-Jtgufmmduscrf [Beano] 1 each PO TIDAC 12/07/16 [History] Dextran 70/Hypromellose [Artificial Tears Eye Drops] 2 drop OP BID 12/07/16 [ History] Morphine Sulfate 7.5 mg PO Q3H PRN 12/07/16 [History] Vit E Acetate/Gly/Dimeth/Water [Cetaphil Moisturizing Lotion] 1 applic TOP DAILY 12/07/16 [History] Calcium Carbonate [Tums] 1,000 mg PO TID PRN 12/12/16 [History] Flecainide Acetate 100 mg PO BID #60 tablet 12/16/16 [Rx] Hydrocodone/Acetaminophen [Tuckerman 5-325] 2 tab PO Q4H PRN #240 tablet 12/16/16 [ Rx] Metoprolol Tartrate [Lopressor] 25 mg PO BID #60 tablet 12/16/16 [Rx] Dextran 70/Hypromellose/PF [Artificial Tears Drops] 2 drop EYEBOTH BID 04/05/17 [History] Warfarin Sodium [Coumadin] 1.5 mg PO ASDIRECTED 04/05/17 [History] Past Medical History HEENT History: Reports: Cataract, Impaired Vision, Other (See Below) Other HEENT History: dry eye Cardiovascular History: Reports: Afib, CAD, Heart Failure, High Cholesterol, Hypertension Respiratory History: Reports: Asthma, COPD, Pneumonia, Recurrent, Other (See Below) Other Respiratory History: chronic pulmonary edema. right lobectomy partial Gastrointestinal History: Reports: Chronic Constipation, Diverticulosis, GERD, Other (See Below) Other Gastrointestinal History: Intestinal rupture. warren's esophagus. colostomy Genitourinary History: Reports: Renal Disease, Other (See Below) Other Genitourinary History: malignant neoplasm of of the kidney Musculoskeletal History: Reports: Fracture Other Musculoskeletal History: right rib fractures Neurological History: Reports: Concussion, Head Trauma Psychiatric History: Reports: Anxiety, Depression, Psych Hospitalization(s), PTSD, Other (See Below) Other Psychiatric History: sleep disorder Hematologic History: Reports: Anemia, Anticoagulation Therapy Oncologic (Cancer) History: Reports: Renal Dermatologic History: Reports: Other (See Below) Other Dermatologic History: dermatitis - Infectious Disease History Infectious Disease History: Reports: C-Difficile, Diphtheria, Mumps, Rheumatic Fever - Past Surgical History HEENT Surgical History: Reports: Cataract Surgery Other Cardiovascular Surgeries/Procedures: angiogram. ablasion GI Surgical History: Reports: Colon, Colostomy, EGD, Hernia Repair/Other, Other (See Below) Male Surgical History: Reports: Other (See Below) Other Male Surgeries/Procedures: "frozen" a spot on his kidney Social & Family History - Family History Family Medical History: Unobtainable HEENT: Reports: None Cardiac: Reports: Heart Failure, CA Respiratory: Reports: COPD Psychiatric: Reports: Anxiety, Psych Hospitalization(s) Endocrine/Metabolic: Reports: Diabetes, type II - Tobacco Use Smoking Status *Q: Former Smoker Years of Tobacco use: 42 Used Tobacco, but Quit: Yes Month Tobacco Last Used: 2007 Second Hand Smoke Exposure: No - Caffeine Use Caffeine Use: Reports: Coffee, Soda - Alcohol Use Days Per Week of Alcohol Use: 1 Number of Drinks Per Day: 1 Total Drinks Per Week: 1 - Recreational Drug Use Recreational Drug Use: No - Living Situation & Occupation Living situation: Reports: Single Occupation: Disabled ED ROS GENERAL - Review of Systems Review Of Systems: See Below Constitutional: Reports: Weakness. Denies: Fever HEENT: Reports: No Symptoms Respiratory: Reports: Shortness of Breath, Cough, Sputum Cardiovascular: Reports: Chest Pain, Dyspnea on Exertion, Palpitations GI/Abdominal: Reports: Nausea, Vomiting : Reports: No Symptoms Musculoskeletal: Reports: No Symptoms Skin: Reports: No Symptoms Neurological: Reports: No Symptoms ED EXAM, GENERAL - Physical Exam Exam: See Below Exam Limited By: Respiratory Distress General Appearance: Alert, Severe Distress Head: Atraumatic, Normocephalic Neck: Normal Inspection, Supple, Non-Tender, Full Range of Motion Respiratory/Chest: Respiratory Distress, Rhonchi, Wheezing, Accessory Muscle Use , Retractions Cardiovascular: No Murmur, Tachycardia GI/Abdominal: Soft, Non-Tender, Other (Colostomy bag) Extremities: Normal Inspection, Non-Tender, No Pedal Edema Course - Vital Signs Last Recorded V/S: Last Vital Signs Temp 101.4 F H 04/05/17 07:59 Pulse 118 H 04/05/17 07:59 Resp 16 04/05/17 07:59 BP 137/88 04/05/17 07:59 Pulse Ox 97 04/05/17 08:00 - Orders/Labs/Meds Orders: Active Orders 24 hr Category Date Time Status BIPAP Adult [RT BiPAP/CPAP] [RC] ASDIRECTED Care 04/05/17 06:25 Active Cardiac Monitoring [RC] .As Directed Care 04/05/17 06:19 Active EKG Documentation Completion [RC] ASDIRECTED Care 04/05/17 06:21 Active Peripheral IV Care [RC] . DIRECTED Care 04/05/17 06:21 Active Chest 1V Frontal [CR] Stat Exams 04/05/17 06:20 Taken CULTURE BLOOD [BC] Urgent Lab 04/05/17 07:35 Received CULTURE BLOOD [BC] Urgent Lab 04/05/17 07:45 Received Blood Culture x2 Reflex Set [OM.PC] Urgent Oth 04/05/17 07:26 Ordered Peripheral IV Insertion Adult [OM.PC] Stat Oth 04/05/17 06:19 Ordered Saline Lock Insert [OM.PC] Stat Oth 04/05/17 06:19 Ordered EKG 12 Lead [EK] Stat Ther 04/05/17 06:20 Ordered Labs: Laboratory Tests 04/05/17 04/05/17 04/05/17 Range/Units 06:40 06:40 06:40 WBC 16.4 H (4.5-11.0) K/uL RBC 4.28 L (4.30-5.90) M/uL Hgb 12.6 (12.0-15.0) g/dL Hct 39.1 L (40.0-54.0) % MCV 91 (80-98) fL MCH 29 (27-31) pg MCHC 32 (32-36) % Plt Count 279 (150-400) K/uL Neut % (Auto) 84 H (36-66) % Lymph % (Auto) 8 L (24-44) % [place] % (Auto) 7 H (2-6) % Eos % (Auto) 1 L (2-4) % Baso % (Auto) 0 (0-1) % PT 28.9 H (9.5-12.0) sec INR 2.60 H (0.80-1.20) APTT 38.7 H (27.0-36.0) sec Puncture Site ABG pH (7.350-7.450) ABG pCO2 (35.0-42.0) mmHg ABG pO2 (75.0-100.0) mmHg ABG HCO3 (22.0-26.0) mmol/L ABG Total CO2 (23.0-27.0) mmol/L ABG O2 Saturation (95.0-98.0) % ABG O2 Content (15.0-23.0) %vol ABG Base Excess mm/L ABG Hemoglobin (13.5-18.0) g/dL ABG Oxyhemoglobin % ABG Carboxyhemoglobin (0.0-1.6) % ABG Methemoglobin % O2 Delivery Device Oxygen Flow Rate L Sodium 139 L (140-148) mmol/L Potassium 4.7 (3.6-5.2) mmol/L Chloride 105 (100-108) mmol/L Carbon Dioxide 28 (21-32) mmol/L Anion Gap 10.7 (5.0-14.0) mmol/L BUN 24 H (7-18) mg/dL Creatinine 1.6 H (0.8-1.3) mg/dL Est Cr Clr Drug Dosing 42.35 mL/min Estimated GFR (MDRD) 43 L (>60) Glucose 142 H (74-106) mg/dL Lactic Acid (0.4-2.0) mmol/L Calcium 8.3 L (8.5-10.1) mg/dL Total Bilirubin 0.2 (0.2-1.0) mg/dL AST 19 (15-37) U/L ALT 23 (12-78) U/L Alkaline Phosphatase 117 H (46-116) U/L CK-MB (CK-2) 1.3 (0-3.6) mg/mL Troponin I < 0.017 (0.000-0.056) ng/mL Total Protein 7.5 (6.4-8.2) g/dL Albumin 3.1 L (3.4-5.0) g/dL Globulin 4.4 H (2.3-3.5) g/dL Albumin/Globulin Ratio 0.7 L (1.2-2.2) Urine Color Urine Appearance Urine pH (4.5-8.0) Ur Specific [place] (1.008-1.030) Urine Protein (NEGATIVE) mg/dL Urine Glucose (UA) (NEGATIVE) mg/dL Urine Ketones (NEGATIVE) mg/dL Urine Occult Blood (NEGATIVE) Urine Nitrite (NEGAITVE) Urine Bilirubin (NEGATIVE) Urine Urobilinogen (NORMAL) mg/dL Ur Leukocyte Esterase (NEGATIVE) Urine RBC (0-5) Urine WBC (0-5) Ur Epithelial Cells Amorphous Sediment Urine Bacteria Urine Mucus Urine Other 04/05/17 04/05/17 04/05/17 Range/Units 06:40 06:40 07:00 WBC (4.5-11.0) K/uL RBC (4.30-5.90) M/uL Hgb (12.0-15.0) g/dL Hct (40.0-54.0) % MCV (80-98) fL MCH (27-31) pg MCHC (32-36) % Plt Count (150-400) K/uL Neut % (Auto) (36-66) % Lymph % (Auto) (24-44) % [place] % (Auto) (2-6) % Eos % (Auto) (2-4) % Baso % (Auto) (0-1) % PT (9.5-12.0) sec INR (0.80-1.20) APTT (27.0-36.0) sec Puncture Site L radial ABG pH 7.380 (7.350-7.450) ABG pCO2 46.7 H (35.0-42.0) mmHg ABG pO2 91.2 (75.0-100.0) mmHg ABG HCO3 26.9 H (22.0-26.0) mmol/L ABG Total CO2 24.3 (23.0-27.0) mmol/L ABG O2 Saturation 96.8 (95.0-98.0) % ABG O2 Content 17.0 (15.0-23.0) %vol ABG Base Excess 1.8 mm/L ABG Hemoglobin 12.7 L (13.5-18.0) g/dL ABG Oxyhemoglobin 95.0 % ABG Carboxyhemoglobin 1.2 (0.0-1.6) % ABG Methemoglobin 0.7 % O2 Delivery Device Cpap Oxygen Flow Rate 10 L Sodium (140-148) mmol/L Potassium (3.6-5.2) mmol/L Chloride (100-108) mmol/L Carbon Dioxide (21-32) mmol/L Anion Gap (5.0-14.0) mmol/L BUN (7-18) mg/dL Creatinine (0.8-1.3) mg/dL Est Cr Clr Drug Dosing mL/min Estimated GFR (MDRD) (>60) Glucose (74-106) mg/dL Lactic Acid 1.7 (0.4-2.0) mmol/L Calcium (8.5-10.1) mg/dL Total Bilirubin (0.2-1.0) mg/dL AST (15-37) U/L ALT (12-78) U/L Alkaline Phosphatase (46-116) U/L CK-MB (CK-2) (0-3.6) mg/mL Troponin I (0.000-0.056) ng/mL Total Protein (6.4-8.2) g/dL Albumin (3.4-5.0) g/dL Globulin (2.3-3.5) g/dL Albumin/Globulin Ratio (1.2-2.2) Urine Color Yellow Urine Appearance Slightly cloudy Urine pH 5.0 (4.5-8.0) Ur Specific [place] 1.015 (1.008-1.030) Urine Protein 30 H (NEGATIVE) mg/dL Urine Glucose (UA) Normal (NEGATIVE) mg/dL Urine Ketones Negative (NEGATIVE) mg/dL Urine Occult Blood Negative (NEGATIVE) Urine Nitrite Negative (NEGAITVE) Urine Bilirubin Negative (NEGATIVE) Urine Urobilinogen Normal (NORMAL) mg/dL Ur Leukocyte Esterase Negative (NEGATIVE) Urine RBC 0-5 (0-5) Urine WBC 0-5 (0-5) Ur Epithelial Cells Not seen Amorphous Sediment Rare Urine Bacteria Not seen Urine Mucus Rare Urine Other See note Meds: Medications Discontinued Medications Generic Name Dose Route Start Last Admin Trade Name Eliasq PRN Reason Stop Dose Admin Aspirin 300 mg 04/05/17 06:22 04/05/17 07:20 Aspirin RECTAL 04/05/17 06:23 300 mg NOW ONE Administration Diltiazem HCl 25 mg 04/05/17 06:21 04/05/17 06:30 Diltiazem IVPUSH 04/05/17 06:22 25 mg ONETIME ONE Administration Diltiazem HCl Confirm 04/05/17 06:46 04/05/17 06:52 Cardizem Administered 04/05/17 06:47 Not Given Dose 100 mg .ROUTE .STK-MED ONE Diltiazem HCl 100 mg/ Sodium 100 mls @ 5 mls/hr 04/05/17 06:30 04/05/17 06:50 Chloride IV 5 mg/hr TITRATE LEONCIO 5 mls/hr Protocol Administration 5 MG/HR Sodium Chloride Confirm 04/05/17 06:47 04/05/17 06:52 Normal Saline Administered 04/05/17 06:48 Not Given Dose 100 mls @ as directed .ROUTE .STK-MED ONE Cefepime HCl 2 gm/ Sodium 50 mls @ 100 mls/hr 04/05/17 07:18 04/05/17 07:37 Chloride IV 04/05/17 07:47 100 mls/hr ONETIME ONE Administration Vancomycin HCl 1 gm/ Sodium 250 mls @ 150 mls/hr 04/05/17 07:50 04/05/17 08: 03 Chloride IV 04/05/17 09:29 150 mls/hr ONETIME ONE Administration Morphine Sulfate 2 mg 04/05/17 06:23 04/05/17 06:44 Morphine IVPUSH 04/06/17 06:24 2 mg Q10M PRN Administration Chest Pain Nitroglycerin 0.4 mg 04/05/17 06:23 Nitrostat SL 04/06/17 06:24 Q5M PRN Chest Pain Ondansetron HCl 4 mg 04/05/17 06:24 04/05/17 06:31 Zofran IVPUSH 04/05/17 06:25 4 mg ONETIME ONE Administration Sodium Chloride 10 ml 04/05/17 06:19 04/05/17 06:33 Saline Flush FLUSH 10 ml ASDIRECTED PRN Administration Keep Vein Open Departure - Departure Disposition: DC/Tfer to Other 70 Clinical Impression: COPD exacerbation, Atrial fibrillation with rapid ventricular response Pneumonia Qualifiers: Pneumonia type: due to unspecified organism Laterality: right Lung location: upper lobe of lung Qualified Code(s): J18.1 - Lobar pneumonia, unspecified organism Referrals: Yg Walker MD [Primary Care Provider] - Forms: ED Department Discharge Care Plan Goals: Once blood cultures have been drawn, antibiotics started and patient stable patient will be transferred to [facility] to be admitted to ICU under the care of the hospitalist service, accepted by Dr. Grady. - My Orders Last 24 Hours: My Active Orders 04/05/17 07:26 Blood Culture x2 Reflex Set [OM.PC] Urgent 04/05/17 07:35 CULTURE BLOOD [BC] Urgent 04/05/17 07:45 CULTURE BLOOD [BC] Urgent - Assessment/Plan Last 24 Hours: My Active Orders 04/05/17 07:26 Blood Culture x2 Reflex Set [OM.PC] Urgent 04/05/17 07:35 CULTURE BLOOD [BC] Urgent 04/05/17 07:45 CULTURE BLOOD [BC] Urgent <Yg Pineda D - Last Filed: 04/05/17 10:19> ED HPI GENERAL MEDICAL PROBLEM chest pain Pain Score (Numeric/FACES): 2 ED EXAM, GENERAL - Physical Exam GI/Abdominal: Other Course - Re-Assessments/Exams Free Text/Narrative Re-Assessment/Exam: 04/05/17 07:[address] Officer. Patient is on a Cardizem drip which is controlling his atrial fibrillation to a rate of 105 to 115. He is on a nonrebreather mask, feeling much better and O2 saturations at 97%. ABGs were reassuring and near normal. Lactic acid was normal. Chest x-ray however showed a fairly significant right upper lobe pneumonia, so 2 g of cefepime and 1 g of vancomycin IV was given. There were no ICU beds available at our hospital, the [facility] was also full, so Dr. Grady at [facility] kindly accepted the patient in transfer. Departure - Departure Time of Disposition: 08:20 Reason for Transfer *Q: Other Condition: Fair
[2017-04-05] MEDS ORDERED: Diltiazem 100 MG AdvVial ONE (06:46)
[2017-04-05] MEDS ORDERED: Sodium Chloride 0.9% 100 ML ONE (06:47)
[2017-04-05] MEDS ORDERED: Cefepime 2 GM in Sodium Chloride 0.9% 50 ML IV ONE (07:18)
[2017-04-05 08:00] VITALS: BP 137/88
--- NOTE | 2017-04-05 10:28 | CR ---
Portable chest Comparison: December 2016. There has been interval development of a dense infiltrate of the right upper lobe. No additional infi ltrates are seen. The heart and vascular structures are within normal limits. Impression: 1. Right upper lobe pneumonia. Follow-up is recommended to confirm resolution.
== END 2017-04-05 08:23 | disposition other institution (70) ==
LOC: JP.ED 06:03
DX: J44.1 Chronic obstructive pulmonary disease with (acute) exacerbation (principal); J18.9 Pneumonia, unspecified organism; I48.91 Unspecified atrial fibrillation; I11.0 Hypertensive heart disease with heart failure; I50.9 Heart failure, unspecified; Z88.8 Allergy status to other drugs, medicaments and biological substances; Z79.899 Other long term (current) drug therapy; Z87.891 Personal history of nicotine dependence
CPT/HCPCS: 36415; 36600; 71010; 80053; 81001; 82553; 82803; 83605; 84484; 85025; 85610; 85730; 87040; 93005; 96365; 96375; 99285; A9270; J0692; J2270; J2405; J3370; J3490; J7030; J7050; 93010; 99284

== ENCOUNTER 2019-09-22 00:43 | Emergency (ER) | payer MEDICARE, MEDICAID ==
--- NOTE | 2019-09-22 02:28 | EDM.PDOC ---
ED HPI GENERAL MEDICAL PROBLEM - General Chief Complaint: Gastrointestinal Problem Stated Complaint: MEDICAL VIA [facility] Time Seen by Provider: 09/22/19 02:15 Source of Information: Reports: Patient History Limitations: Reports: No Limitations - History of Present Illness Onset: Other (Bleeding at the ostomy site has been a recurrent problem for quite some time. 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: Reports: Other Medication(s) (Is on coumadin) - Related Data Allergies Allergy/AdvReac Type Severity Reaction Status Date / Time albuterol Allergy Cannot Verified 09/22/19 00:54 Remember digoxin AdvReac Confusion Verified 09/22/19 00:54 Home Meds: Home Meds ClonazePAM [KlonoPIN] 1 mg PO BEDTIME PRN 08/10/15 [History] Levalbuterol HCl 1 ampule IH TID 08/10/15 [History] Polyethylene Glycol 3350 [MiraLAX] 17 gm PO DAILY 03/11/16 [History] Acetaminophen [Tylenol] 650 mg PO TID 12/07/16 [History] Morphine Sulfate 7.5 mg PO Q3H PRN 12/07/16 [History] Fluticasone/Vilanterol [Breo Ellipta 200-25 MCG Inhalation Kit] 1 puff PO DAILY 12/30/17 [History] Sennosides/Docusate Sodium [Senokot-S Tablet] 2 tab PO BID 12/30/17 [History] amLODIPine Besylate [Norvasc] 2.5 mg PO DAILY 12/30/17 [History] Albuterol/Ipratropium [Combivent Respimat] 1 puff INH QID 06/07/18 [History] ClonazePAM [KlonoPIN] 1 mg PO BEDTIME 06/07/18 [History] Fish Oil/[place]-3 Fatty Acids [Fish Oil] 1,200 mg PO TID 06/07/18 [History] Gabapentin [Neurontin] 200 mg PO TID 06/07/18 [History] Gabapentin [Neurontin] 300 mg PO BEDTIME 06/07/18 [History] Loratadine [Claritin] 10 mg PO Q24H PRN 06/07/18 [History] Melatonin 5 mg PO BEDTIME 06/07/18 [History] Sertraline [Zoloft] 200 mg PO DAILY 06/07/18 [History] Torsemide 40 mg PO DAILY 06/07/18 [History] Torsemide [Demadex] 20 mg PO DAILY #60 06/10/18 [Rx] Warfarin [Coumadin] 1.5 mg PO ASDIRECTED #0 06/10/18 [Rx] predniSONE 10 mg PO DAILY #0 06/10/18 [Rx] Allopurinol [Zyloprim] 200 mg PO DAILY 09/22/19 [History] Azithromycin 500 mg PO ASDIRECTED 09/22/19 [History] Finasteride [Proscar] 5 mg PO DAILY 09/22/19 [History] Flecainide Acetate 100 mg PO BID 09/22/19 [History] Metoprolol Tartrate [Lopressor] 12.5 mg PO DAILY 09/22/19 [History] Pantoprazole Sodium [Protonix] 40 mg PO DAILY 09/22/19 [History] Potassium Chloride 20 meq PO BID 09/22/19 [History] Roflumilast [Daliresp] 500 mcg PO DAILY 09/22/19 [History] Simvastatin [Zocor] 10 mg PO DAILY 09/22/19 [History] Warfarin Sodium [Coumadin] 1 mg PO ASDIRECTED 09/22/19 [History] buPROPion HCl [Bupropion Xl] 100 mg PO DAILY 09/22/19 [History] Past Medical History HEENT History: Reports: Cataract, Impaired Vision, Other (See Below) Other HEENT History: dry eye Cardiovascular History: Reports: Afib, CAD, Heart Failure, High Cholesterol, Hypertension Respiratory History: Reports: Asthma, COPD, Pneumonia, Recurrent, Other (See Below) Other Respiratory History: chronic pulmonary edema. right lobectomy partial Gastrointestinal History: Reports: Chronic Constipation, Diverticulosis, GERD, Other (See Below) Other Gastrointestinal History: Intestinal rupture. warren's esophagus. colostomy Genitourinary History: Reports: Renal Disease, Other (See Below) Other Genitourinary History: malignant neoplasm of of the kidney Musculoskeletal History: Reports: Fracture Other Musculoskeletal History: right rib fractures Neurological History: Reports: Concussion, Head Trauma Psychiatric History: Reports: Anxiety, Depression, Psych Hospitalization(s), PTSD, Other (See Below) Other Psychiatric History: sleep disorder Endocrine/Metabolic History: Reports: Obesity/BMI 30+ Hematologic History: Reports: Anemia, Anticoagulation Therapy Oncologic (Cancer) History: Reports: Renal Dermatologic History: Reports: Other (See Below) Other Dermatologic History: dermatitis - Infectious Disease History Infectious Disease History: Reports: Chicken Pox, Influenza, Measles, Mumps, Pertussis (Whooping Cough), Rheumatic Fever, Scarlet Fever, Shingles - Past Surgical History Head Surgeries/Procedures: Reports: None HEENT Surgical History: Reports: Cataract Surgery Cardiovascular Surgical History: Reports: Other (See Below) Other Cardiovascular Surgeries/Procedures: angiogram. ablasion Respiratory Surgical History: Reports: None GI Surgical History: Reports: Colon, Colostomy, EGD, Hernia Repair/Other, Other (See Below) Male Surgical History: Reports: Other (See Below) Other Male Surgeries/Procedures: "frozen" a spot on his kidney Endocrine Surgical History: Reports: None Neurological Surgical History: Reports: None Musculoskeletal Surgical History: Reports: None Oncologic Surgical History: Reports: None Dermatological Surgical History: Reports: None Social & Family History - Family History Family Medical History: Unobtainable HEENT: Reports: None Cardiac: Reports: Heart Failure, [place] Respiratory: Reports: COPD Psychiatric: Reports: Anxiety, Psych Hospitalization(s) Endocrine/Metabolic: Reports: Diabetes, type II - Tobacco Use Smoking Status *Q: Former Smoker Used Tobacco, but Quit: Yes Month/Year Tobacco Last Used: 2009 Second Hand Smoke Exposure: No - Caffeine Use Caffeine Use: Reports: Coffee - Recreational Drug Use Recreational Drug Use: No - Living Situation & Occupation Living situation: Reports: Single Occupation: Disabled ED ROS GENERAL - Review of Systems Review Of Systems: See Below Constitutional: Denies: Fever Respiratory: Denies: Shortness of Breath Cardiovascular: Denies: Chest Pain Endocrine: Reports: Fatigue GI/Abdominal: Reports: Abdominal Pain (States her is mild pain around the ostomy site. This is not new. There has been bleeding at the ostomy site in the past), Distension. Denies: Vomiting Musculoskeletal: Reports: No Symptoms Skin: Reports: Other (Multiple patches of ecchymosis) Neurological: Denies: Confusion, Trouble Speaking Psychiatric: Reports: No Symptoms ED EXAM, GI/ABD - Physical Exam Exam: See Below Exam Limited By: No Limitations General Appearance: Alert, WD/WN Head: Atraumatic, Normocephalic Cardiovascular: Normal Peripheral Pulses GI/Abdominal Exam: Normal Bowel Sounds, Tender. No: Guarding, Rigid, Other ( Scarred defect where the patient's umbilicus should be.) Extremities: Normal Range of Motion Neurological: Alert, Oriented, Normal Cognition Skin Exam: Warm, Dry, Ecchymosis (Large areas of purple bruising on the patient' s arms, the extensor surfaces.) Course - Vital Signs Last Recorded V/S: Last Vital Signs Temp 37.3 C 09/22/19 00:48 Pulse 56 L 09/22/19 00:48 Resp 16 09/22/19 00:48 BP 122/70 09/22/19 00:48 Pulse Ox 97 09/22/19 00:48 - Orders/Labs/Meds Orders: Active Orders 24 hr Category Date Time Status COMPREHENSIVE METABOLIC PN,CMP [CHEM] Stat Lab 09/22/19 02:35 Received Labs: Laboratory Tests 09/22/19 09/22/19 Range/Units 02:35 02:35 WBC 9.1 (4.5-11.0) K/uL RBC 3.57 L (4.30-5.90) M/uL Hgb 9.6 L (12.0-15.0) g/dL Hct 32.0 L (40.0-54.0) % MCV 90 (80-98) fL MCH 27 (27-31) pg MCHC 30 L (32-36) % Plt Count 226 (150-400) K/uL PT 21.1 H (9.5-12.0) sec INR 2.03 H (0.80-1.20) Hgb is sltly low at 9.6, but not requiring transfusion. Plt ct is nml. INR therapeutic @ 2.1 Departure - Departure Time of Disposition: 03:05 Disposition: DC/Tfer to Hospice - Home 50 Clinical Impression: Complication of ostomy, Bleeding - Discharge Information Referrals: PCP,None [Primary Care Provider] - Forms: ED Department Discharge Additional Instructions: No new prescription is given. INR perfect at 2.1, so continue same dose of coumadin. See surgeon this coming about bleeding at ostomy site. No therapeutic intervention done in ED this AM. Sepsis Event Note - Evaluation Sepsis Screening Result: No Definite Risk - Focused Exam Vital Signs: Vital Signs Temp Pulse Resp BP Pulse Ox 09/22/19 00:48 37.3 C 56 L 16 122/70 97 09/22/19 00:46 37.3 C 56 L 16 122/70 97 Date Exam was Performed: 09/22/19 Time Exam was Performed: 02:57 - My Orders Last 24 Hours: My Active Orders 09/22/19 02:35 COMPREHENSIVE METABOLIC PN,CMP [CHEM] Stat - Assessment/Plan Last 24 Hours: My Active Orders 09/22/19 02:35 COMPREHENSIVE METABOLIC PN,CMP [CHEM] Stat
[2019-09-22 03:01] VITALS: BP 129/67; PULSE 48
== END 2019-09-22 08:59 | disposition hospice, home (50) ==
LOC: JP.ED 00:43
DX: K91.841 Postprocedural hemorrhage of a digestive system organ or structure following other procedure (principal); M79.81 Nontraumatic hematoma of soft tissue; I11.0 Hypertensive heart disease with heart failure; I50.9 Heart failure, unspecified; I48.91 Unspecified atrial fibrillation; I25.10 Atherosclerotic heart disease of native coronary artery without angina pectoris; E78.00 Pure hypercholesterolemia, unspecified; J44.9 Chronic obstructive pulmonary disease, unspecified; K21.9 Gastro-esophageal reflux disease without esophagitis; F41.9 Anxiety disorder, unspecified; F32.9 Major depressive disorder, single episode, unspecified; E66.9 Obesity, unspecified; Z68.31 Body mass index [BMI] 31.0-31.9, adult; Z87.891 Personal history of nicotine dependence; Z79.01 Long term (current) use of anticoagulants; Z79.899 Other long term (current) drug therapy; Z88.8 Allergy status to other drugs, medicaments and biological substances
CPT/HCPCS: 36415; 80053; 85027; 85610; 99284

== ENCOUNTER 2019-09-22 18:38 | Emergency (ER) | payer MEDICARE, MEDICAID ==
[2019-09-22] MEDS ORDERED: Ondansetron 4 MG/2 ML SDV IVPUSH ONE (19:01)
[2019-09-22] MEDS ORDERED: HYDROmorphone 0.5 MG/0.5 ML Syringe IVPUSH ONE (19:01)
--- NOTE | 2019-09-22 19:08 | EDM.PDOC ---
ED HPI GENERAL MEDICAL PROBLEM - General Chief Complaint: Gastrointestinal Problem Stated Complaint: [facility] Time Seen by Provider: 09/22/19 18:50 Source of Information: Reports: Patient, Old Records History Limitations: Reports: No Limitations - History of Present Illness Onset: Other (Patient has had chronic bleeding at his ostomy site ever since the ostomy was placed. He is anticoagulated. He was here much earlier this morning and I saw him at that time. At that time he had a normal hemoglobin/ hematocrit and therapeutic INR.) Duration: Chronic, Waxing/Waning Location: Reports: Abdomen, Other (Patient does state that his abdomen is quite tender next to the ostomy site. This appears to be worsened from what he was experiencing earlier this morning.) Quality: Reports: Sharp Severity: Moderate Improves with: Reports: Other (Patient states he has been eating and that this does not aggravate his pain). Denies: Eating Associated Symptoms: Reports: No Other Symptoms Left Abdomen Pain Score (Numeric/FACES): 6 - Related Data Allergies Allergy/AdvReac Type Severity Reaction Status Date / Time albuterol Allergy Cannot Verified 09/22/19 18:58 Remember digoxin AdvReac Confusion Verified 09/22/19 18:58 Home Meds: Home Meds ClonazePAM [KlonoPIN] 1 mg PO BEDTIME PRN 08/10/15 [History] Levalbuterol HCl 1 ampule IH TID 08/10/15 [History] Polyethylene Glycol 3350 [MiraLAX] 17 gm PO DAILY 03/11/16 [History] Acetaminophen [Tylenol] 650 mg PO TID 12/07/16 [History] Morphine Sulfate 7.5 mg PO Q3H PRN 12/07/16 [History] Fluticasone/Vilanterol [Breo Ellipta 200-25 MCG Inhalation Kit] 1 puff PO DAILY 12/30/17 [History] Sennosides/Docusate Sodium [Senokot-S Tablet] 2 tab PO BID 12/30/17 [History] amLODIPine Besylate [Norvasc] 2.5 mg PO DAILY 12/30/17 [History] Albuterol/Ipratropium [Combivent Respimat] 1 puff INH QID 06/07/18 [History] ClonazePAM [KlonoPIN] 1 mg PO BEDTIME 06/07/18 [History] Fish Oil/[place]-3 Fatty Acids [Fish Oil] 1,200 mg PO TID 06/07/18 [History] Gabapentin [Neurontin] 200 mg PO TID 06/07/18 [History] Gabapentin [Neurontin] 300 mg PO BEDTIME 06/07/18 [History] Loratadine [Claritin] 10 mg PO Q24H PRN 06/07/18 [History] Melatonin 5 mg PO BEDTIME 06/07/18 [History] Sertraline [Zoloft] 200 mg PO DAILY 06/07/18 [History] Torsemide 40 mg PO DAILY 06/07/18 [History] Torsemide [Demadex] 20 mg PO DAILY #60 06/10/18 [Rx] Warfarin [Coumadin] 1.5 mg PO ASDIRECTED #0 06/10/18 [Rx] predniSONE 10 mg PO DAILY #0 06/10/18 [Rx] Allopurinol [Zyloprim] 200 mg PO DAILY 09/22/19 [History] Azithromycin 500 mg PO ASDIRECTED 09/22/19 [History] Finasteride [Proscar] 5 mg PO DAILY 09/22/19 [History] Flecainide Acetate 100 mg PO BID 09/22/19 [History] Metoprolol Tartrate [Lopressor] 12.5 mg PO DAILY 09/22/19 [History] Pantoprazole Sodium [Protonix] 40 mg PO DAILY 09/22/19 [History] Potassium Chloride 20 meq PO BID 09/22/19 [History] Roflumilast [Daliresp] 500 mcg PO DAILY 09/22/19 [History] Simvastatin [Zocor] 10 mg PO DAILY 09/22/19 [History] Warfarin Sodium [Coumadin] 1 mg PO ASDIRECTED 09/22/19 [History] buPROPion HCl [Bupropion Xl] 100 mg PO DAILY 09/22/19 [History] Past Medical History HEENT History: Reports: Cataract, Impaired Vision, Other (See Below) Other HEENT History: dry eye Cardiovascular History: Reports: Afib, CAD, Heart Failure, High Cholesterol, Hypertension Respiratory History: Reports: Asthma, COPD, Pneumonia, Recurrent, Other (See Below) Other Respiratory History: chronic pulmonary edema. right lobectomy partial Gastrointestinal History: Reports: Chronic Constipation, Diverticulosis, GERD, Other (See Below) Other Gastrointestinal History: Intestinal rupture. warren's esophagus. colostomy Genitourinary History: Reports: Renal Disease, Other (See Below) Other Genitourinary History: malignant neoplasm of of the kidney Musculoskeletal History: Reports: Fracture Other Musculoskeletal History: right rib fractures Neurological History: Reports: Concussion, Head Trauma Psychiatric History: Reports: Anxiety, Depression, Psych Hospitalization(s), PTSD, Other (See Below) Other Psychiatric History: sleep disorder Endocrine/Metabolic History: Reports: Obesity/BMI 30+ Hematologic History: Reports: Anemia, Anticoagulation Therapy Oncologic (Cancer) History: Reports: Renal Dermatologic History: Reports: Other (See Below) Other Dermatologic History: dermatitis - Infectious Disease History Infectious Disease History: Reports: Chicken Pox, Influenza, Measles, Mumps, Pertussis (Whooping Cough), Rheumatic Fever, Scarlet Fever, Shingles - Past Surgical History Head Surgeries/Procedures: Reports: None HEENT Surgical History: Reports: Cataract Surgery Cardiovascular Surgical History: Reports: Other (See Below) Other Cardiovascular Surgeries/Procedures: angiogram. ablasion Respiratory Surgical History: Reports: None GI Surgical History: Reports: Colon, Colostomy, EGD, Hernia Repair/Other, Other (See Below) Male Surgical History: Reports: Other (See Below) Other Male Surgeries/Procedures: "frozen" a spot on his kidney Endocrine Surgical History: Reports: None Neurological Surgical History: Reports: None Musculoskeletal Surgical History: Reports: None Oncologic Surgical History: Reports: None Dermatological Surgical History: Reports: None Social & Family History - Family History Family Medical History: Unobtainable HEENT: Reports: None Cardiac: Reports: Heart Failure, PR Respiratory: Reports: COPD Psychiatric: Reports: Anxiety, Psych Hospitalization(s) Endocrine/Metabolic: Reports: Diabetes, type II - Caffeine Use Caffeine Use: Reports: Coffee - Living Situation & Occupation Living situation: Reports: Single Occupation: Disabled ED ROS GENERAL - Review of Systems Review Of Systems: See Below Constitutional: Denies: Fever, Diaphoresis HEENT: Reports: No Symptoms Respiratory: Denies: Shortness of Breath Cardiovascular: Denies: Chest Pain, Edema GI/Abdominal: Reports: Abdominal Pain, Bloody Stool, Distension, Nausea. Denies : Vomiting : Reports: No Symptoms. Denies: Dysuria Musculoskeletal: Reports: No Symptoms Skin: Reports: Bruising Neurological: Denies: Confusion Psychiatric: Reports: No Symptoms Hematologic/Lymphatic: Reports: Easy Bleeding (Anticoagulated with Coumadin) ED EXAM, GI/ABD - Physical Exam Exam: See Below Exam Limited By: No Limitations General Appearance: Alert, Anxious, Mild Distress Eyes: Bilateral: Normal Appearance Ears: Normal External Exam Nose: Normal Inspection Throat/Mouth: Normal Inspection, Normal Voice, Other (Oral mucous membranes are moist) Head: Atraumatic, Normocephalic Neck: Normal Inspection Respiratory/Chest: No Respiratory Distress, Lungs Clear, Normal Breath Sounds Cardiovascular: Regular Rate, Rhythm, No Edema, No Murmur GI/Abdominal Exam: No Organomegaly, No Mass, Distended, Guarding (To the left side of his ostomy), Tender, Other (Ostomy bag present left lower quadrant. It does not appear to be filled with any material). No: Abnormal Bowel Sounds, Mass Extremities: Normal Inspection, No Pedal Edema Neurological: Alert, Oriented, Normal Cognition Skin Exam: Warm, Dry, No Rash, Ecchymosis Course - Vital Signs Text/Narrative:: Initially treated the patient with 1 L IV fluid, 0.5 mg of Dilaudid, and 4 mg of IV Zofran. I reviewed CT scan results with the patient and also consulted Dr. Willis (on-call surgeon) by phone. Dr. Willis concurred with starting the patient on steroids and having follow-up this coming week as an outpatient. The patient already has an appointment at 1:30 this coming Wednesday with a surgeon. Last Recorded V/S: Last Vital Signs Temp 35.8 C L 09/22/19 18:53 Pulse 60 09/22/19 18:53 Resp 16 09/22/19 18:53 BP 133/69 09/22/19 18:53 Pulse Ox 99 09/22/19 18:53 - Orders/Labs/Meds Orders: Active Orders 24 hr Category Date Time Status Iopamidol [Isovue-300 (61%)] Med 09/22/19 19:30 Active 100 ml IV . DIRECTED Sodium Chloride 0.9% [Normal Saline] 1,000 ml Med 09/22/19 19:15 Active IV ASDIRECTED Sodium Chloride 0.9% [Normal Saline] 80 ml Med 09/22/19 19:30 Active IV ASDIRECTED predniSONE Med 09/22/19 22:02 Once 20 mg PO ONETIME ONE Medication Orders Sodium Chloride (Normal Saline) 1,000 mls @ 500 mls/hr IV ASDIRECTED LEONCIO Last Admin: 09/22/19 19:25 Dose: 500 mls/hr Sodium Chloride (Normal Saline) 80 mls @ 3.5 mls/sec IV ASDIRECTED LEONCIO Last Admin: 09/22/19 21:01 Dose: 2.7 mls/sec Iopamidol (Isovue-300 (61%)) 100 ml IV . DIRECTED LEONCIO Last Admin: 09/22/19 21:02 Dose: 100 ml Prednisone (Prednisone) 20 mg PO ONETIME ONE Stop: 09/22/19 22:03 Labs: Laboratory Tests 09/22/19 09/22/19 09/22/19 Range/Units 19:01 19:14 19:14 WBC 11.6 H (4.5-11.0) K/uL RBC 3.45 L (4.30-5.90) M/uL Hgb 9.4 L (12.0-15.0) g/dL Hct 31.1 L (40.0-54.0) % MCV 90 (80-98) fL MCH 27 (27-31) pg MCHC 30 L (32-36) % Plt Count 254 (150-400) K/uL Sodium 138 L (140-148) mmol/L Potassium 4.4 (3.6-5.2) mmol/L Chloride 104 (100-108) mmol/L Carbon Dioxide 26 (21-32) mmol/L Anion Gap 12.4 (5.0-14.0) mmol/L BUN 38 H (7-18) mg/dL Creatinine 1.8 H (0.8-1.3) mg/dL Est Cr Clr Drug Dosing 36.55 mL/min Estimated GFR (MDRD) 37 L (>60) Glucose 138 H (74-106) mg/dL Lactic Acid (0.4-2.0) mmol/L Calcium 8.5 (8.5-10.1) mg/dL Total Bilirubin 0.2 (0.2-1.0) mg/dL AST 16 (15-37) U/L ALT 31 (12-78) U/L Alkaline Phosphatase 115 (46-116) U/L Total Protein 6.0 L (6.4-8.2) g/dL Albumin 2.3 L (3.4-5.0) g/dL Globulin 3.7 H (2.3-3.5) g/dL Albumin/Globulin Ratio 0.6 L (1.2-2.2) Amylase (25-115) U/L Lipase (73-393) U/L Urine Color Yellow (YELLOW) Urine Appearance Clear (CLEAR) Urine pH 5.5 (5.0-8.0) Ur Specific [place] 1.020 (1.008-1.030) Urine Protein Negative (NEGATIVE) mg/dL Urine Glucose (UA) Negative (NEGATIVE) mg/dL Urine Ketones Negative (NEGATIVE) mg/dL Urine Occult Blood Small H (NEGATIVE) Urine Nitrite Negative (NEGATIVE) Urine Bilirubin Negative (NEGATIVE) Urine Urobilinogen 0.2 (0.2-1.0) EU/dL Ur Leukocyte Esterase Negative (NEGATIVE) Urine RBC 0-5 (0-5) Urine WBC Not seen (0-5) Ur Epithelial Cells Rare Amorphous Sediment Few Urine Bacteria Not seen Urine Mucus Not seen 09/22/19 09/22/19 09/22/19 Range/Units 19:14 19:14 19:14 WBC (4.5-11.0) K/uL RBC (4.30-5.90) M/uL Hgb (12.0-15.0) g/dL Hct (40.0-54.0) % MCV (80-98) fL MCH (27-31) pg MCHC (32-36) % Plt Count (150-400) K/uL Sodium (140-148) mmol/L Potassium (3.6-5.2) mmol/L Chloride (100-108) mmol/L Carbon Dioxide (21-32) mmol/L Anion Gap (5.0-14.0) mmol/L BUN (7-18) mg/dL Creatinine (0.8-1.3) mg/dL Est Cr Clr Drug Dosing mL/min Estimated GFR (MDRD) (>60) Glucose (74-106) mg/dL Lactic Acid 1.2 (0.4-2.0) mmol/L Calcium (8.5-10.1) mg/dL Total Bilirubin (0.2-1.0) mg/dL AST (15-37) U/L ALT (12-78) U/L Alkaline Phosphatase (46-116) U/L Total Protein (6.4-8.2) g/dL Albumin (3.4-5.0) g/dL Globulin (2.3-3.5) g/dL Albumin/Globulin Ratio (1.2-2.2) Amylase 28 (25-115) U/L Lipase 47 L (73-393) U/L Urine Color (YELLOW) Urine Appearance (CLEAR) Urine pH (5.0-8.0) Ur Specific [place] (1.008-1.030) Urine Protein (NEGATIVE) mg/dL Urine Glucose (UA) (NEGATIVE) mg/dL Urine Ketones (NEGATIVE) mg/dL Urine Occult Blood (NEGATIVE) Urine Nitrite (NEGATIVE) Urine Bilirubin (NEGATIVE) Urine Urobilinogen (0.2-1.0) EU/dL Ur Leukocyte Esterase (NEGATIVE) Urine RBC (0-5) Urine WBC (0-5) Ur Epithelial Cells Amorphous Sediment Urine Bacteria Urine Mucus Meds: Medications Generic Name Dose Route Start Last Admin Trade Name Freq PRN Reason Stop Dose Admin Sodium Chloride 1,000 mls @ 500 mls/hr 09/22/19 19:15 09/22/19 19:25 Normal Saline IV 500 mls/hr ASDIRECTED LEONCIO Administration Sodium Chloride 80 mls @ 3.5 mls/sec 09/22/19 19:30 09/22/19 21:01 Normal Saline IV 2.7 mls/sec ASDIRECTED LEONCIO Administration Iopamidol 100 ml 09/22/19 19:30 09/22/19 21:02 Isovue-300 (61%) IV 100 ml . DIRECTED LEONCIO Administration Prednisone 20 mg 09/22/19 22:02 Prednisone PO 09/22/19 22:03 ONETIME ONE Discontinued Medications Generic Name Dose Route Start Last Admin Trade Name Freq PRN Reason Stop Dose Admin Hydromorphone HCl 0.5 mg 09/22/19 19:01 09/22/19 19:20 Dilaudid IVPUSH 09/22/19 19:02 0.5 mg ONETIME ONE Administration Ondansetron HCl 4 mg 09/22/19 19:01 09/22/19 19:20 Zofran IVPUSH 09/22/19 19:02 4 mg ONETIME ONE Administration Sodium Chloride 10 ml 09/22/19 19:16 09/22/19 21:00 Saline Flush FLUSH 09/22/19 19:17 10 ml ONETIME ONE Administration - Radiology Interpretation CT Results Date: 09/22/19 (CT results consistent with colitis in the distal colon immediately adjacent to the STEMI site. There are diverticula present but the radiologist does not diagnosed diverticulitis. There is no perforation or free fluid.) Departure - Departure Time of Disposition: 22:05 Disposition: DC/Tfer to Hospice - Home 50 Condition: Good Clinical Impression: Colitis - Discharge Information Instructions: Colitis Referrals: PCP,None [Primary Care Provider] - Forms: ED Department Discharge Additional Instructions: Starting tomorrow take prednisone 20 mg orally 2 times a day. Keep appointment that you already have with surgeon Wednesday. Expect that there may be some more bleeding into the ostomy until the inflammation of the colon wall subsides. Continue all your other medications Sepsis Event Note - Evaluation Sepsis Screening Result: No Definite Risk - Focused Exam Vital Signs: Vital Signs Temp Pulse Resp BP Pulse Ox 09/22/19 18:53 35.8 C L 60 16 133/69 99 09/22/19 18:40 35.8 C L 60 22 H 133/69 100 Date Exam was Performed: 09/22/19 Time Exam was Performed: 22:03 - My Orders Last 24 Hours: My Active Orders 09/22/19 19:15 Sodium Chloride 0.9% [Normal Saline] 1,000 ml IV ASDIRECTED 09/22/19 19:30 Iopamidol [Isovue-300 (61%)] 100 ml IV . DIRECTED Sodium Chloride 0.9% [Normal Saline] 80 ml IV ASDIRECTED 09/22/19 22:02 predniSONE 20 mg PO ONETIME ONE - Assessment/Plan Last 24 Hours: My Active Orders 09/22/19 19:15 Sodium Chloride 0.9% [Normal Saline] 1,000 ml IV ASDIRECTED 09/22/19 19:30 Iopamidol [Isovue-300 (61%)] 100 ml IV . DIRECTED Sodium Chloride 0.9% [Normal Saline] 80 ml IV ASDIRECTED 09/22/19 22:02 predniSONE 20 mg PO ONETIME ONE
[2019-09-22] MEDS ORDERED: Sodium Chloride 0.9% 1,000 ML IV SCH (19:15)
[2019-09-22] MEDS ORDERED: Sodium Chloride 0.9% 10 ML Syringe FLUSH ONE (19:16)
[2019-09-22] MEDS ORDERED: Iopamidol 612 MG/ML 100 ML Bottle IV SCH (19:30)
[2019-09-22] MEDS ORDERED: Sodium Chloride 0.9% 80 ML IV SCH (19:30)
--- NOTE | 2019-09-22 21:43 | CRLCT ---
INDICATION: Left-sided abdomen pain and bleeding at the ostomy site. TECHNIQUE: CT abdomen and pelvis acquired with 100 cc Isovue-300 IV contrast. COMPARISON: October 04, 2018. FINDINGS: Lower chest: Unremarkable. Liver: Unremarkable. Normal in size and attenuation. No masses. Gallbladder and bile ducts: Unremarkable. No stones or inflammation. No biliary dilatation. Pancreas: Unremarkable. No mass or inflammation. Spleen: Unremarkable. Normal in size. No masses. Adrenal glands: Unremarkable. No nodules. Kidneys: Stable postprocedural changes in the lateral cortex of the left kidney. Both kidneys are atrophic, this is unchanged. GI tract: There are postoperative changes from a partial colectomy with creation of a left ventral colostomy. The distal segment of colon leading to the colostomy demonstrates wall thickening and inflammation consistent with acute colitis. Diverticulosis is present in the rectosigmoid stump. Small bowel is normal in caliber and appearance. Normal appendix. Vasculature: Unremarkable. Mesenteric arteries are patent. Lymph nodes: No lymphadenopathy. Omentum/Peritoneum/Abdominal Wall: Broad right ventral hernia contains nonobstructed small bowel. No free air. Pelvis: Unremarkable. Bones: Stable mild L1 chronic compression fracture. Otherwise unremarkable for age. IMPRESSION: Acute colitis involving the distal segment of colon at the colostomy site. No other acute findings or significant changes from the prior exam. Please note that all CT scans at this facility use dose modulation, iterative reconstruction, and/or weight-based dosing when appropriate to reduce radiation dose to as low as reasonably achievable. Dictated by Jeremy De Leon MD @ Sep 22 2019 9:31PM Signed by Dr. Jeremy De Leon @ Sep 22 2019 9:41PM
[2019-09-22] MEDS ORDERED: predniSONE 20 MG Tab PO ONE (22:02)
[2019-09-22 22:12] VITALS: BP 116/69; PULSE 61
== END 2019-09-22 23:20 | disposition hospice, home (50) ==
LOC: JP.ED 18:38
DX: K52.9 Noninfective gastroenteritis and colitis, unspecified (principal); I11.0 Hypertensive heart disease with heart failure; I50.9 Heart failure, unspecified; I48.91 Unspecified atrial fibrillation; I25.10 Atherosclerotic heart disease of native coronary artery without angina pectoris; E78.00 Pure hypercholesterolemia, unspecified; J44.9 Chronic obstructive pulmonary disease, unspecified; K21.9 Gastro-esophageal reflux disease without esophagitis; F41.9 Anxiety disorder, unspecified; F32.9 Major depressive disorder, single episode, unspecified; E66.9 Obesity, unspecified; Z68.31 Body mass index [BMI] 31.0-31.9, adult; Z88.8 Allergy status to other drugs, medicaments and biological substances; Z79.01 Long term (current) use of anticoagulants; Z79.899 Other long term (current) drug therapy
CPT/HCPCS: 36415; 74177; 80053; 81001; 82150; 83605; 83690; 85027; 96361; 96374; 96375; 99285; A9270; J1170; J2405; J7030; J7050; Q9967